=== PATIENT | male | born 1950 | race Caucasian/White ===

== ENCOUNTER 2020-01-02 10:32 | Inpatient (IN) | payer OTHER, MEDICARE, SELFPAY ==
[2020-01-02] VITALS (16 sets, daily range): BP systolic 73–164; BP diastolic 42–98; PULSE 74–127; RESP 18–36; TEMP 36.5–36.9; O2SAT 87–99; BMI 25.8
--- NOTE | 2020-01-02 10:36 | XR_ITS ---
WS: [id number] PORTABLE CHEST HISTORY: dyspnea COMPARISON: 09/04/2008 Moderate elevation RIGHT hemidiaphragm. Atelectasis at the lung bases. Cardiac size: Mildly enlarged cardiac silhouette. Mediastinum/Aorta: Normal mediastinum. No osseous abnormality seen. XR/XR chest 1V portable [id number] IMPRESSION: 1. Moderate elevation of the RIGHT hemidiaphragm is new since 2007. May be rel ated to atelectasis. Please note a CT of the abdomen will be performed today an d this area will be further evaluated. 2. Bibasilar atelectasis.
--- NOTE | 2020-01-02 10:36 | CT_ITS ---
WS: [id number] CT ABDOMEN AND PELVIS NONCONTRAST HISTORY: Severe abdominal pain with distention. TECHNIQUE: Imaging performed through the abdomen and pelvis. Coronal and sagittal reformats are submi tted. All CT scans at use at least one of these dose optimization techniques: automated exposure control; mA and/or kV adjustment per patient size (includes targeted exams where d ose is matched to clinical indication); or iterative reconstruction. DLP: 851.72 mGy.cm COMPARISON: 09/07/2008 Lower thorax: Minimal atelectasis at the RIGHT lung base. Heart size is slightly enlarged. No signifi cant hiatal hernia. Liver: Liver is mildly enlarged with hepatic steatosis. No bile duct dilatation. Gallbladder: Unremarkable. Pancreas: Normal. Spleen: Normal. Adrenal glands: Normal. Right kidney: Normal size with no stones, masses or atrophy. Left kidney: Normal size with no stones, mass or atrophy. Mild atherosclerosis of aorta but no aneurysm. No aortic rupture. No ascites or adenopathy. There is mild misting within the mesentery which is probably related to yudi ma. GI tract: Moderate dilatation of small bowel loops. Fluid-filled small bowel loops with mucosal edema and wall thickening. In the distal small bowel there is a focal perforation. Extraluminal air still contained within the RIGHT lower quadrant. Perforation is in the distal jejunum but just proximal to the terminal ileum. The terminal ileum is also abnormal. There is a tiny amount of air adjacent to th e terminal ileum. Stricture is not excluded at the terminal ileum site. Abdominal wall: Umbilical hernia contains fat. There is a small amount of fluid along the umbilical h ernia tract. Pelvis: Nondistended urinary bladder. No free fluid or adenopathy. Osseous structures: Unremarkable. Notified Cornelius Gramajo DO at 01/02/2020 11:[address]/CT abdomen pelvis wo con [id number] IMPRESSION: 1. High-grade small bowel obstruction with a focal perforation in the distal j ejunum. Perforation is just proximal to the terminal ileum. Small amount of ext raluminal free air at the perforation site. Changes throughout the small bowel suggesting ischemia or high-grade infection. 2. Mild hepatomegaly and hepatic steatosis. 3. Partially calcified aorta.
--- NOTE | 2020-01-02 10:49 | W.ED.ABDPA2 ---
HPI - Abdominal Pain General: Chief Complaint: Abdominal Pain Stated Complaint: ABD PAIN Time Seen by Provider: 01/02/20 10:35 History of Present Illness: Associated Symptoms: Reports change in bowel habits, constipation, nausea and vomiting Review of Systems General: Reports: 10 or more systems reviewed and unremarkable except in HPI and below GI: Reports: abdominal pain, nausea, vomiting, constipation and change in bowel habits PFSH ED PFSH: Medical History Crohn's disease Drug-induced peripheral neuropathy Esophageal stricture GERD (gastroesophageal reflux disease) HTN (hypertension), benign Hyperlipidemia Surgical History History of esophageal dilatation Status post colonoscopy Social History Smoking and tobacco status: never smoked Physical Exam Const: COMMON NORMALS: no apparent distress, average body habitus, oriented x3, no limitations, healthy appearing, alert and well nourished HENMT: COMMON NORMALS: normocephalic, head/scalp atraumatic, hearing grossly normal bilaterally, external ears normal, EAC's normal, TM's normal bilaterally, external nose normal, nasal mucous membranes and turbinates normal, moist oral mucous membranes, oropharynx normal, dentition normal and gingiva normal HEAD & SCALP: normocephalic and atraumatic NOSE: external nose normal and nasal mucous membranes and turbinates normal EXTERNAL EAR: Yes external ears normal EXTERNAL AUDITORY CANAL: EAC's normal TYMPANIC MEMBRANE: TM's normal bilaterally Eye: COMMON NORMALS: PERRL, EOMs intact bilaterally, conjunctivae normal, no scleral icterus, no papilledema, normal visual modi by confrontation and fundi normal bilaterally CONJUNCTIVA: Yes conjunctivae normal PUPIL: Yes PERRL DIRECT OPHTHALMOSCOPY: Yes no papilledema and Yes fundi normal bilaterally Neck/C-Spine: COMMON NORMALS: full ROM, no lymphadenopathy, supple, no meningeal signs, no JVD, thyroid normal and no carotid bruits THYROID: thyroid normal Chest: COMMONS NORMALS: inspection of chest normal and palpation of chest normal Resp: COMMON NORMALS: normal respiratory effort, no retractions, no use of accessory muscles, clear to auscultation bilaterally and percussion normal AUSCULTATION: clear to auscultation bilaterally PERCUSSION: percussion normal Cardio: COMMON NORMALS: no JVD, regular rate, regular rhythm, S1 normal heart sound, S2 normal heart sound, no gallops, no clicks, no murmurs, no rub and peripheral pulses 2+ throughout RATE: regular rate RHYTHM: regular rhythm HEART SOUNDS: S1 normal and S2 normal PERIPHERAL PULSES: pulses 2+ throughout GI: INSPECTION: Yes abdominal distension and No fluid wave present AUSCULTATION: Yes hypoactive bowel sounds and Yes absent bowel sounds PALPATION: Yes firm PERCUSSION: no fluid wave : COMMON NORMALS: Yes no CVA tenderness BLADDER/KIDNEY EXAM: Yes no CVA tenderness Back/Pelvis: COMMON NORMALS: no CVA tenderness, thoracic and lumbar spine normal to inspection, no thoracic nor lumbar tenderness, thoraco-lumbar ROM normal and straight leg raise negative bilaterally Extremity: COMMON NORMALS: normal to inspection, full ROM, normal capillary refill, no joint enlargement, no clubbing, cyanosis or edema, no calf tenderness and no pedal edema Neuro: COMMON NORMALS: oriented x3 SENSORIUM/ORIENTATION: Yes alert MENINGEAL SIGNS: Yes no meningeal signs Skin: COMMON NORMALS: no rashes or lesions noted, no wounds, skin turgor normal, no jaundice, no petechiae and no mottling GENERAL SKIN EXAM: no rashes or lesions noted and turgor normal Procedures Intubation Mg Given: 20 Mg Given: 200 Course Vital Signs: Vital signs: Vital Signs Temperature 98.3 F 01/02/20 13:51 Pulse Rate 74 01/02/20 13:51 Respiratory Rate 20 H 01/02/20 13:51 Blood Pressure 77/42 01/02/20 13:51 Pulse Oximetry 95 01/02/20 13:51 MDM - Abdominal Pain Lab Data: Labs: Lab Results 01/02/20 01/02/20 01/02/20 Range/Units 10:20 10:20 10:40 WBC 15.5 H (4.0-10.0) 10^3/ uL RBC 5.37 H (4.1-5.3) 10^6/u L Hgb 16.2 (11.7-16.6) g/dL Hct 47.8 (42.0-52.0) % MCV 89.0 (80-94) fL MCH 30.2 (28.0-34.0) pg MCHC 33.9 (30.0-36.0) g/dL RDW 13.4 (12.1-15.1) % Plt Count 225 (130-400) 10^3/c mm MPV 9.9 (7.4-10.4) fL Neut % (Auto) 93.3 % Lymph % (Auto) 3.8 % [place] % (Auto) 1.9 % Eos % (Auto) 0.0 % Baso % (Auto) 0.2 % Neut # (Auto) 14.4 H (1.8-7.7) 10^3/u L Lymph # (Auto) 0.6 L (0.8-4.8) 10^3/u L [place] # (Auto) 0.3 (0.2-0.9) 10^3/u L Eos # (Auto) 0.0 (0.0-0.8) 10^3/u L Baso # (Auto) 0.0 (0.0-0.1) 10^3/u L Nucleated RBC % (a uto) 0 % Nucleated RBCs # 0.0 /100WBC Sodium 136 (136-145) mmol/L Potassium 3.1 L (3.5-5.1) mmol/L Chloride 96 L (98-107) mmol/L Carbon Dioxide 23 (22-29) mmol/L Anion Gap 20.1 H (5-19) BUN 29 H (8-23) mg/dL Creatinine 2.7 H (0.7-1.2) mg/dL GFR Calculation 23.7 L (90-130) mL/min Glucose 94 (65-115) mg/dL Calculated Osmolal ity 279 L (285-295) mOsm/k g Lactate 3.8 H (0.5-2.2) mmol/L Calcium 9.1 (8.5-10.5) mg/dL Total Bilirubin 2.5 H (0.15-1.2) mg/dL AST 50 H (0-40) U/L ALT 43 H (0-41) U/L Alkaline Phosphata se 92 (40-130) IU/L Creatine Kinase 119 (39-308) U/L Total Protein 6.5 L (6.6-8.7) g/dL Albumin 3.5 (3.5-5.2) g/dL Globulin 3.0 (1.3-4.6) g/dL Lipase 12 L (13-60) U/L Discharge Plan Discharge Patient Disposition: Admitted As Inpatient Clinical Impression: Perforation of small intestine Condition: Fair Referrals: Beth Calvo MD [Family Provider] - Felecia Cardoso DO [Primary Care Provider] - Coding Level of Care 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
[2020-01-02 10:55] LABS: Basophils % 0.2 %; Hematocrit 47.8 % (42.0-52.0); Hemoglobin 16.2 g/dL (11.7-16.6); Lymphocytes # 0.6 10^3/uL (0.8-4.8); Lymphocytes % 3.8 %; Mean Corpuscular HGB Conc 33.9 g/dL (30.0-36.0); Mean Corpuscular Hemoglobin 30.2 pg (28.0-34.0); Mean Platelet Volume 9.9 fL (7.4-10.4); Monocytes # 0.3 10^3/uL (0.2-0.9); Monocytes % 1.9 %; Neutrophils # 14.4 10^3/uL (1.8-7.7); Neutrophils % 93.3 %; Nucleated Red Blood Cells % 0 %; Platelet Count 225 10^3/cmm (130-400); Red Blood Count 5.37 10^6/uL (4.1-5.3); Red Cell Distribution Width 13.4 % (12.1-15.1); White Blood Count 15.5 10^3/uL (4.0-10.0)
[2020-01-02] MEDS: sodium chloride 0.9% 1,000 ML 999 ML IV ×2 (10:55→13:19)
[2020-01-02 11:05] LABS: Alanine Aminotransferase 43 U/L (0-41); Albumin Level 3.5 g/dL (3.5-5.2); Alkaline Phosphatase 92 IU/L (40-130); Anion Gap 20.1 (5-19); Aspartate Amino Transferase 50 U/L (0-40); Blood Urea Nitrogen 29 mg/dL (8-23); Calcium 9.1 mg/dL (8.5-10.5); Carbon Dioxide 23 mmol/L (22-29); Chloride 96 mmol/L (98-107); Creatine Phosphokinase 119 U/L (39-308); Glomerular Filtration Rate 23.7 mL/min (90-130); Glucose 94 mg/dL (65-115); Lipase 12 U/L (13-60); Osmolality Calculated 279 mOsm/kg (285-295); Potassium 3.1 mmol/L (3.5-5.1); Sodium 136 mmol/L (136-145); Total Bilirubin 2.5 mg/dL (0.15-1.2); Total Protein 6.5 g/dL (6.6-8.7)
--- NOTE | 2020-01-02 11:05 | PC.NURSE ---
Update provided to pt's Corinne in the waiting room. I will call her with updates.
[2020-01-02 11:12] LABS: Lactate (Lactic Acid level) 3.8 mmol/L (0.5-2.2)
--- NOTE | 2020-01-02 11:26 | PC.NURSE ---
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
[2020-01-02 11:31] LABS: Slide Review Slide Review Perform
--- NOTE | 2020-01-02 11:33 | PC.NURSE ---
Pt returned from CT.
--- NOTE | 2020-01-02 12:46 | ANES.PREANE2 ---
Pre-Anesthetic Assessment Pre-Anesthetic Assessment: Height/Weight: Height 1.78 m Weight 81.647 kg Temp Pulse Resp BP Pulse Ox 97.8 F 88 18 82/55 95 01/02/20 10:33 01/02/20 12:30 01/02/20 12:30 01/02/20 12:30 01/02/20 12:30 Last intake: Intake Last Liquid Date 01/02/20 Last Liquid Time 07:00 Last Solid Date 01/01/20 Last Solid Time 06:00 Social: Social History: No alcohol and No tobacco Exam: Pre-Anes Outpt Exam: alert, oriented x 3, clear to auscultation bilaterally and regular rate & rhythm Airway: Submandibular: WNL Cervical ROM: Other (limited) MP: 3 Dentition: False (U/L) and Other History/ROS: No significant history except as noted Pulmonary: Pulmonary: None reported CV/HEM: CV/HEM: HTN : Comments: elevated CK Hepatic: Hepatic: None reported GI: GI: GERD (controlled) Metabolic: Metabolic: Hyperlipidemia Musc/skel: Musc/skel: None reported Neuropsych: Neuropsych: None reported Anesthetic Plan: ASA status: 3E Anesthesia: Anesthesia Evaluation and General Risk of > 500 ml blood loss (7ml/kg in children): No PFSH Anesthesia PFSH: Social History Smoking and tobacco status: never smoked Data Anesthesia CBC & Chem 7: 01/02/20 10:20 01/02/20 10:20 Other Labs: Laboratory Results - last 48 hr 01/02/20 01/02/20 01/02/20 10:20 10:20 10:40 WBC 15.5 H RBC 5.37 H Hgb 16.2 Hct 47.8 MCV 89.0 MCH 30.2 MCHC 33.9 RDW 13.4 Plt Count 225 MPV 9.9 Neut % (Auto) 93.3 Lymph % (Auto) 3.8 [place] % (Auto) 1.9 Eos % (Auto) 0.0 Baso % (Auto) 0.2 Neut # (Auto) 14.4 H Lymph # (Auto) 0.6 L [place] # (Auto) 0.3 Eos # (Auto) 0.0 Baso # (Auto) 0.0 Nucleated RBC % (auto) 0 Nucleated RBCs # 0.0 Sodium 136 Potassium 3.1 L Chloride 96 L Carbon Dioxide 23 Anion Gap 20.1 H BUN 29 H Creatinine 2.7 H GFR Calculation 23.7 L Glucose 94 Calculated Osmolality 279 L Lactate 3.8 H Calcium 9.1 Total Bilirubin 2.5 H AST 50 H ALT 43 H Alkaline Phosphatase 92 Creatine Kinase 119 Total Protein 6.5 L Albumin 3.5 Globulin 3.0 Lipase 12 L Micro: Microbiology 01/02/20 10:45 Blood Culture - Preliminary Blood SPECIMEN COLLECTED 01/02/20 10:40 Blood Culture - Preliminary Blood SPECIMEN COLLECTED Cardiac Studies: No Data to Display
[2020-01-02] MEDS: piperacillin-tazobactam 4.5 GM in sodium chloride 0.9% (plus) 50 ML IV (12:49)
--- NOTE | 2020-01-02 13:33 | P.HP_ITS ---
Providers/Chief Complaint Primary Care Provider: Felecia Cardoso DO Chief Complaint: PERFORATED BOWELL History of Present Illness Enoch Collier is a 69 year old male who developed abdominal pain about 2 days ago while working. Initially he thought that it was secondary to trauma but over the next 48 hours his abdominal pain progressively worsened. Patient said having nausea and vomiting yesterday. He denies any fevers but had some chills. He states that he had a bowel movement yesterday but none since then. He usually has daily bowel movements which are loose. He has been on Humira for 8 years now for his Crohn's disease and previously was on Remicade. No previous abdominal surgeries. Review of Systems General: Reports: 10 or more systems reviewed and unremarkable except in HPI and below Medications/Allergies Home Medications Medication Instructions Recorded Confirmed Last Taken Type adalimumab 40 mg SUBCUT Q14D 01/02/20 01/02/20 12/26/19 History cholestyramine-aspartame 4 g PO BID 01/02/20 01/02/20 01/01/20 History [Cholestyramine Light] clonidine HCl 0.1 mg PO TID PRN 01/02/20 01/02/20 01/01/20 History cyanocobalamin (vitamin B-12) 500 mcg PO DAILY 01/02/20 01/02/20 01/01/20 History cyclobenzaprine 10 mg PO TID PRN 01/02/20 01/02/20 01/01/20 History lisinopril 20 mg PO BID 01/02/20 01/02/20 01/01/20 History naproxen 500 mg PO BID 01/02/20 01/02/20 01/01/20 History omeprazole 20 mg PO DAILY 01/02/20 01/02/20 01/01/20 History Allergies Allergy/AdvReac Type Severity Reaction Status Date / Time azathioprine Allergy Unknown Unknown Verified 01/02/20 12:06 cefprozil Allergy Unknown Unknown Verified 01/02/20 12:06 infliximab [From Remicade] Allergy Unknown Verified 01/02/20 11:18 iron Allergy Unknown Verified 01/02/20 11:18 oxycodone Allergy ALGY-Hives Verified 01/02/20 11:18 PFSH Acute PFSH: Medical History Crohn's disease Drug-induced peripheral neuropathy Esophageal stricture GERD (gastroesophageal reflux disease) HTN (hypertension), benign Hyperlipidemia Surgical History History of esophageal dilatation Status post colonoscopy Social History Smoking and tobacco status: never smoked Vitals/I&O/Wt Last Vital Signs Temp 97.8 F 01/02/20 10:33 Pulse 88 01/02/20 12:30 Resp 18 01/02/20 12:30 BP 82/55 01/02/20 12:30 Pulse Ox 95 01/02/20 12:30 Weight last 48 hrs Weight 180 lb Physical Exam Narrative: EXAM NARRATIVE: HEENT: Normocephalic Eye: Sclera /conjunctiva normal Respiratory and chest: Bilateral clear breath sounds on auscultation Cardiovascular: Normal S1 and S2 heart sounds Abdomen: Soft to palpation, tender, distended Neurological: Oriented to place person and time Skin: Intact, no lesions appreciated on gross exam Data : 01/02/20 10:20 01/02/20 10:20 Micro: Microbiology 01/02/20 10:45 Blood Culture - Preliminary Blood SPECIMEN COLLECTED 01/02/20 10:40 Blood Culture - Preliminary Blood SPECIMEN COLLECTED A&P Assessment and plan (1) Perforation of small intestine: 69-year-old gentleman who presents with 48-hour history of abdominal pain nausea and vomiting currently on Humira for Crohn's disease with small bowel perforation noted on CT scan. His white count is up to 15, his creatinine is usually less than 1 but is up to 2.7 today. He has elevated bilirubin on initial presentation his systolic blood pressure was in the 70s and after 2 L of fluids, it is in the higher 90s. Patient is in septic shock secondary to perforated bowel. Discussed the findings with the patient and we will proceed with emergent laparoscopic possible open bowel resection with possible open ostomy. He will be admitted to the ICU after surgery. Procedure, risks, benefits and alternatives have been discussed with the patient who wishes to proceed with surgery. 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
--- NOTE | 2020-01-02 17:27 | PM.OP ---
Operative Report Date of procedure: January 02, 2020 Pre-op Diagnosis: Severe Crohn's disease with perforation, small bowel obstruction Post-op Diagnosis: 15 inches of inflamed ileum and jejunum with purulent fluid noted in the peritoneal cavity, no fecal contamination. Multiple strictures noted in the jejunum with no signs of obstruction at the level of the strictures. Procedure Done: Diagnostic laparoscopy Exploratory laparotomy, small bowel resection with end ileostomy Pathology: jejunum and ileum Surgeon: Eren Valverde Anesthesia: General Estimated blood loss (mL): 50 IV fluids (mL): 2,500 Urine output (mL): 50 Condition: stable Disposition: ICU Brief History: There is a 69-year-old gentleman who is on Humira for his Crohn's disease for the last 8 years and has been doing well. He presented to the ER with generalized abdominal pain, peritonitis and hypotension with systolic in the 70s. CT scan of the abdomen and pelvis revealed perforation of the jejunum. Patient was therefore emergently taken to the operating room for surgery after resuscitation for septic shock. Procedure: The patient was taken to the operating room and intubated under general anesthesia after IV antibiotic had been administered. A Bowles catheter and NG tube was placed and the abdomen was prepped and draped in a sterile manner. Using 15 blade a midline infraumbilical incision was made and using open Whittaker technique the peritoneal cavity was entered, 10 mm port was placed and 15 mm of pneumoperitoneum was created. A 10 mm 30 degree scope was introduced and 2 separate 5 mm ports were placed in the left lower quadrant and suprapubic area under direct visualization. There are multiple proximally dilated small bowel loops noted as well as purulent fluid noted in the right lower quadrant and right paracolic gutter. The ileum appeared to be severely inflamed with classic creeping fat noted. Visualization was difficult and therefore the ports were removed and the midline laparotomy incision was made to enter the peritoneal cavity. The small bowel loops were exteriorized and the small bowel contents was decompressed proximally into the NG tube. The transition point between the normal bowel and the acutely inflamed jejunum was identified and opening made in the mesentery and 55 mm blue load NOEMI stapler was fired to divide the ileum. The mesentery of the ileum which is thickened was divided using LigaSure. A circular skin incision was made in the right lower quadrant over the rectus muscle, subcutis tissue was divided using electrocautery and a cruciate incision was made in the anterior rectus sheath, the rectus muscles were bluntly and a 2 fingerbreadth opening was made in the posterior rectus sheath and the stapled jejunum was exteriorized. The peritoneal cavity was irrigated with 3 L of warm saline and fascia in the midline was closed using #1 looped PDS. The skin at the midline incision and the port sites were closed with morris. The staple line was divided after interrupted 3-0 Vicryl sutures were placed to approximate the anterior rectus sheath to the serosa of the ileum. The mucosa was approximated to the skin edges after everting. Stoma appliance was placed. The patient was extubated and transferred out with NG tube and Bowles catheter in place.
--- NOTE | 2020-01-02 18:33 | PM.CONSULT ---
Providers/Reason For Consult Consulting Physican/Specialty*: Dr. Valverde, surgery Reason for Consult*: Acute kidney injury and medical management Attending Physician: Eren Valverde MD Primary Care Provider: Felecia Cardoso DO History of Present Illness History of Present Illness Enoch Collier is a 69 year old male presented to ER with abdominal pain, nausea/vomiting and chills for couple days and noted to have high-grade small bowel obstruction with evidence of perforation on CT scan. He has underlying Crohn's disease and was taken to the OR and had partial small bowel resection and ostomy placement. In ER he was very hypotensive and septic. He was started on Zosyn and received large amount of fluids. He had evidence of acute kidney injury and had small amount of concentrated urine in the Bowles bag with blood pressure 100s/70s during my evaluation in ICU. He is still under effect of anesthesia and history was somewhat limited. He denied previous history of heart disease, diabetes or stroke. 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 He is immunosuppressed with Humira for the last 8 years. He denies any previous surgeries except to the best I could understand is rectal fissure repair in his young years. He is seeing GI specialist in [facility] and Dr. Cardoso is his primary care physician. He does not appear to be in pain Review of Systems Const: Reports: chills; Denies: fever Eyes: Denies: change in vision ENMT: Denies: throat pain or change in hearing Card: Denies: chest pain, edema or lightheadedness Resp: Denies: shortness of breath or productive cough GI: Reports: abdominal pain, nausea, vomiting and difficulty swallowing (Reports that every 6 months or so he needs to have esophageal stretching); Denies: diarrhea, constipation, blood in stool or black tarry stool Musc: Denies: joint pain or joint swelling Skin/Breast: Denies: rash or redness Neuro: Denies: headache or weakness in extremities Psych: Denies: depression Endo: Denies: excessive sweating Malik/Lymph: Denies: easy bleeding or tender lymph nodes All/Imm: Denies: throat swelling Meds/Allergies Home Medications and Allergies Home Medications Medication Instructions Recorded Confirmed Type adalimumab 40 mg SUBCUT Q14D 01/02/20 01/02/20 History cholestyramine-aspartame 4 g PO BID 01/02/20 01/02/20 History [Cholestyramine Light] clonidine HCl 0.1 mg PO TID PRN 01/02/20 01/02/20 History cyanocobalamin (vitamin B-12) 500 mcg PO DAILY 01/02/20 01/02/20 History cyclobenzaprine 10 mg PO TID PRN 01/02/20 01/02/20 History lisinopril 20 mg PO BID 01/02/20 01/02/20 History naproxen 500 mg PO BID 01/02/20 01/02/20 History omeprazole 20 mg PO DAILY 01/02/20 01/02/20 History Allergies Allergy/AdvReac Type Severity Reaction Status Date / Time azathioprine Allergy Unknown Unknown Verified 01/02/20 12:06 cefprozil Allergy Unknown Unknown Verified 01/02/20 12:06 infliximab [From Remicade] Allergy Unknown Verified 01/02/20 11:18 iron Allergy Unknown Verified 01/02/20 11:18 oxycodone Allergy ALGY-Hives Verified 01/02/20 11:18 PFSH Acute PFSH: Medical History Crohn's disease Drug-induced peripheral neuropathy Esophageal stricture GERD (gastroesophageal reflux disease) HTN (hypertension), benign Hyperlipidemia Surgical History History of esophageal dilatation Status post colonoscopy Family History (Updated 01/02/20 @ 18:51 by Alejandro Blair MD) Mother SLE (systemic lupus erythematosus) Father CAD (coronary artery disease) Social History (Updated 01/02/20 @ 18:52 by Alejandro Blair MD) Quit status (tobacco): has quit using tobacco Year quit tobacco: 1979 Alcohol intake: never Substance/Drug Use: never Lives independently: Yes Household members: spouse Vitals/I&O/Wt Last Vital Signs Temp 97.7 F 01/02/20 17:31 Pulse 85 01/02/20 18:24 Resp 36 H 01/02/20 17:31 BP 164/98 01/02/20 17:31 Pulse Ox 97 01/02/20 18:24 01/02/20 01/02/20 01/02/20 06:59 14:59 22:59 Intake Total 1050 / 1050 Output Total 50 / 50 Balance 1050 / 1050 -50 / 1000 Weight last 48 hrs Weight 81.647 kg Physical Exam Const: COMMON NORMALS: no apparent distress GENERAL APPEARANCE: lethargic ORIENTATION/CONSCIOUSNESS: Yes lethargic HENMT: COMMON NORMALS: normocephalic and head/scalp atraumatic HEAD & SCALP: normocephalic and atraumatic Eye: COMMON NORMALS: EOMs intact bilaterally, conjunctivae normal and no scleral icterus CONJUNCTIVA: Yes conjunctivae normal Neck/C-Spine: COMMON NORMALS: no lymphadenopathy and no meningeal signs Lymph: LYMPHATIC: no lymphadenopathy noted Chest: COMMONS NORMALS: palpation of chest normal Resp: COMMON NORMALS: no use of accessory muscles and clear to auscultation bilaterally AUSCULTATION: clear to auscultation bilaterally Cardio: COMMON NORMALS: regular rate, regular rhythm and no murmurs RATE: regular rate RHYTHM: regular rhythm OTHER: No lower extremity edema GI: COMMON NORMALS: soft to palpation AUSCULTATION: Yes hypoactive bowel sounds PALPATION: Yes soft, No firm, Yes tender, No guarding and No rigid RECTAL EXAM: Yes deferred OTHER: Ostomy noted with minimal bowel protrusion : COMMON NORMALS: Yes no CVA tenderness BLADDER/KIDNEY EXAM: Yes no CVA tenderness Back/Pelvis: COMMON NORMALS: no CVA tenderness and thoracic and lumbar spine normal to inspection Extremity: COMMON NORMALS: normal to inspection and normal capillary refill Neuro: COMMON NORMALS: no focal motor deficits SENSORIUM/ORIENTATION: Yes lethargic MENINGEAL SIGNS: Yes no meningeal signs Psych: COMMON NORMALS: mental status grossly normal, thought process normal and cooperative THOUGHT PROCESS: normal thought process Skin: COMMON NORMALS: no rashes or lesions noted GENERAL SKIN EXAM: no rashes or lesions noted Urinary Catheter Management^: Bowles: Cath Placed During This Visit: yes Urinary Catheter Date of Insertion: 01/02/20 Urinary Catheter Time of Insertion: 14:30 Data Micro: Micro: Microbiology 01/02/20 10:45 Blood Culture - Pr eliminary Blood SPECIMEN [facility] KATIA 01/02/20 10:40 Blood Culture - Pr eliminary Blood SPECIMEN [facility] A&P Assessment and plan (1) HTN (hypertension), benign: Status: Acute (2) Crohn's disease: Immunosuppressed with Humira. Status: Acute (3) Perforation of small intestine: Patient had evidence of distal ileum and jejunum inflammation with purulent material in peritoneal cavity. Status: Acute (4) Acute kidney injury: Prerenal secondary to dehydration and hypotension. ATN felt unlikely. Status: Acute (5) Severe sepsis with acute organ dysfunction due to Gram negative bacteria: As exhibited by leukocytosis, tachypnea and elevated lactic acid as well as hypotension Status: Acute (6) Acute hypotension: Secondary to dehydration and infection/inflammation Status: Acute (7) Dehydration, moderate: Status: Acute (8) Hypokalemia: Status: Acute (9) Transaminitis: This is likely secondary to gram-negative sepsis Status: Acute Additional A&P Information PLAN: Continue Zosyn. Replete potassium and change IV fluids to LR with monitoring of I's and O's Awaiting pathology report and peritoneal culture Blood cultures were obtained. Obtain urine to rule out UTI. Consult Attestations Medical Necessity Statement: Patient with perforated bowel requires close ICU monitoring and treatment. I expect patient will require more than 2 midnights. 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
[2020-01-02] MEDS: ondansetron 2 mg/ML SDV 2 mL 4 MG IVP (18:35)
[2020-01-02] MEDS: famotidine 20 mg/2 mL INJ IVP (18:35)
[2020-01-02] MEDS: morphine 4 mg/mL SDV 1 mL 3 MG IVP ×2 (18:43→20:44)
[2020-01-02] MEDS: potassium chloride premix 40 MEQ/100 ML PREMIX 25 MEQ IV (18:53)
[2020-01-02] MEDS: metroNIDAZOLE IV 500 MG/100 ML PREMIX 100 MG IV (18:54)
[2020-01-02] MEDS: piperacillin-tazobactam 3.375 GM in sodium chloride 0.9% (plus) 50 ML IV (21:27)
[2020-01-02] MEDS: lactated ringers 1,000 ML 125 ML IV (21:28)
[2020-01-02 21:52] LABS: Bilirubin Urine Neg (NEGATIVE); Blood Urine 3+ (Negative); Glucose Urine UA Norm (Normal); Ketones Urine Negative (Negative); Nitrate Urine Negative (Negative); Protein Urine Trace (Negative); Urine Appearance Hazy (CLEAR); Urine Color Yellow (Yellow); Urobilinogen Urine Norm (Negative); pH Urine 6 (5-7)
[2020-01-02 21:53] LABS: RBC Urine 15-25 /hpf (0-2)
[2020-01-02 21:54] LABS: Add Urine Culture? Yes; Amorphous Sediment Urine 1+; Bacteria Urine 1+; Coarse Granular Casts Urine 0-4 /lpf; Hyaline Casts Urine 0-4; Squamous Epithelial Cell Urine 0-4 (0-5)
[2020-01-02 22:53] LABS: Leukocyte Esterase Urine Negative (Negative)
[2020-01-03] VITALS (15 sets, daily range): BP systolic 114–200; BP diastolic 69–100; PULSE 94–112; RESP 13–34; TEMP 36.6–37.2; O2SAT 93–98
[2020-01-03] MEDS: metroNIDAZOLE IV 500 MG/100 ML PREMIX 100 MG IV (02:15)
[2020-01-03] MEDS: morphine 4 mg/mL SDV 1 mL 3 MG IVP ×2 (02:23→10:34)
[2020-01-03 04:57] LABS: Basophils % 0.5 %; Eosinophils % 0.1 %; Hematocrit 49.2 % (42.0-52.0); Hemoglobin 15.6 g/dL (11.7-16.6); Lymphocytes % 11.8 %; Mean Corpuscular HGB Conc 31.7 g/dL (30.0-36.0); Mean Corpuscular Hemoglobin 30.5 pg (28.0-34.0); Mean Corpuscular Volume 96.3 fL (80-94); Mean Platelet Volume 10.7 fL (7.4-10.4); Monocytes # 0.6 10^3/uL (0.2-0.9); Neutrophils # 6.9 10^3/uL (1.8-7.7); Neutrophils % 79.8 %; Nucleated Red Blood Cells % 0 %; Platelet Count 130 10^3/cmm (130-400); Positive C 1; Positive M 1; Red Blood Count 5.11 10^6/uL (4.1-5.3); Red Cell Distribution Width 14.3 % (12.1-15.1); White Blood Count 8.6 10^3/uL (4.0-10.0)
[2020-01-03 05:13] LABS: Alanine Aminotransferase 50 U/L (0-41); Albumin Level 2.3 g/dL (3.5-5.2); Alkaline Phosphatase 73 IU/L (40-130); Anion Gap 17.2 (5-19); Blood Urea Nitrogen 27 mg/dL (8-23); Calcium 7.9 mg/dL (8.5-10.5); Carbon Dioxide 14 mmol/L (22-29); Chloride 109 mmol/L (98-107); Globulin 3.3 g/dL (1.3-4.6); Glomerular Filtration Rate 46.7 mL/min (90-130); Glucose 76 mg/dL (65-115); Osmolality Calculated 276 mOsm/kg (285-295); Potassium 5.2 mmol/L (3.5-5.1); Sodium 135 mmol/L (136-145); Total Bilirubin 1.7 mg/dL (0.15-1.2); Total Protein 5.6 g/dL (6.6-8.7)
[2020-01-03 05:18] LABS: Aspartate Amino Transferase 60 U/L (0-40)
[2020-01-03] MEDS: piperacillin-tazobactam 3.375 GM in sodium chloride 0.9% (plus) 50 ML IV ×3 (06:10→23:19)
[2020-01-03] MEDS: heparin 5,000 unit/mL INJ 1 mL 5000 UNIT SUBCUT ×3 (06:10→23:20)
[2020-01-03] MEDS: lactated ringers 1,000 ML 125 ML IV (06:11)
--- NOTE | 2020-01-03 07:00 | PC.NURSE ---
SHIFT SUMMARY PT HAS REMAINED ALERT AND ORIENTATED. PT BOWEL SOUNDS REMAIN HYPOACTIVE. PT STOMACH IS TENDER, REMAINS SOFT. PT HAS BEEN HAVING ICE CHIPS INTAKE. PT HAS HAD ADEQUATE URINE OUTPUT. PT IV REMAINS PATENT. PT HAS RECEIVED MORPHINE NEEDED FOR PAIN.
[2020-01-03] MEDS: pantoprazole 40 mg SDV IVP (08:46)
[2020-01-03] MEDS: acetaminophen 325 mg Tablet 650 MG PO ×3 (08:46→23:33)
--- NOTE | 2020-01-03 08:47 | P.PN_ITS ---
Subjective Subjective: Interval history: Patient reports feeling better. He denies shortness of breath or chest pain. He has some abdominal soreness post surgery. His white blood cell count and kidney function improved same as bilirubin. His both blood cultures are growing gram-negative rods with identification and susceptibility pending. Vitals/I&O/Wt Last Vital Signs Temp 98.6 F 01/03/20 02:29 Pulse 105 H 01/03/20 08:13 Resp 13 01/03/20 08:13 BP 123/82 01/03/20 08:13 Pulse Ox 94 01/03/20 08:13 01/02/20 01/03/20 01/03/20 22:59 06:59 14:59 Intake Total 1300.000 / 2350.000 300 / 300 Output Total 950 / 950 1700 / 2650 Balance -950 / 100 -400.000 / -300.000 300 / 300 Weight last 48 hrs Weight 81.647 kg Physical Exam Const: COMMON NORMALS: no apparent distress GENERAL APPEARANCE: lethargic ORIENTATION/CONSCIOUSNESS: Yes lethargic HENMT: COMMON NORMALS: normocephalic and head/scalp atraumatic HEAD & SCALP: normocephalic and atraumatic Eye: COMMON NORMALS: EOMs intact bilaterally, conjunctivae normal and no scleral icterus CONJUNCTIVA: Yes conjunctivae normal Neck/C-Spine: COMMON NORMALS: no lymphadenopathy and no meningeal signs Lymph: LYMPHATIC: no lymphadenopathy noted Chest: COMMONS NORMALS: palpation of chest normal Resp: COMMON NORMALS: no use of accessory muscles and clear to auscultation bilaterally AUSCULTATION: clear to auscultation bilaterally Cardio: COMMON NORMALS: regular rate, regular rhythm and no murmurs RATE: regular rate RHYTHM: regular rhythm OTHER: No lower extremity edema GI: COMMON NORMALS: soft to palpation AUSCULTATION: Yes hypoactive bowel sounds PALPATION: Yes soft, No firm, Yes tender, No guarding and No rigid RECTAL EXAM: Yes deferred OTHER: Ostomy noted with minimal bowel protrusion : COMMON NORMALS: Yes no CVA tenderness BLADDER/KIDNEY EXAM: Yes no CVA tenderness Back/Pelvis: COMMON NORMALS: no CVA tenderness and thoracic and lumbar spine normal to inspection Extremity: COMMON NORMALS: normal to inspection and normal capillary refill Neuro: COMMON NORMALS: no focal motor deficits SENSORIUM/ORIENTATION: Yes lethargic MENINGEAL SIGNS: Yes no meningeal signs Psych: COMMON NORMALS: mental status grossly normal, thought process normal and cooperative THOUGHT PROCESS: normal thought process Skin: COMMON NORMALS: no rashes or lesions noted GENERAL SKIN EXAM: no rashes or lesions noted Urinary Catheter Management^: Bowles: Cath Placed During This Visit: yes Reason for Continuing Indwelling Catheter: Accurate Measurement of Urinary Output in Critically Ill Patients Urinary Catheter Date of Insertion: 01/02/20 Urinary Catheter Time of Insertion: 14:30 Data : 01/03/20 04:35 01/03/20 04:35 Micro: Microbiology 01/02/20 10:45 Blood Culture - Preliminary Blood Gram positive emil Gram Negative Rods 01/02/20 10:40 Blood Culture - Preliminary Blood Gram Negative Rods A&P Assessment and plan (1) HTN (hypertension), benign: Status: Acute (2) Crohn's disease: Immunosuppressed with Humira. Status: Acute (3) Perforation of small intestine: Patient had evidence of distal ileum and jejunum inflammation with purulent material in peritoneal cavity. Status: Acute (4) Acute kidney injury: Prerenal secondary to dehydration and hypotension. ATN felt unlikely. Status: Acute (5) Severe sepsis with acute organ dysfunction due to Gram negative bacteria: As exhibited by leukocytosis, tachypnea and elevated lactic acid as well as hypotension Status: Acute (6) Acute hypotension: Secondary to dehydration and infection/inflammation Status: Acute (7) Dehydration, moderate: Status: Acute (8) Hypokalemia: Status: Acute (9) Transaminitis: This is likely secondary to gram-negative sepsis Status: Acute Additional A&P Information PLAN: Continue Zosyn and change IV fluids to normal saline. Continue monitoring urinary output. Repeat blood cultures now and then tomorrow morning. We will keep Bowles catheter in for now for close I's and O's. If remains hemodynamically stable we can transfer patient to MedSur sheets later today. Monitor cardiorespiratory status. Discussed with Dr. Valverde this morning. We will avoid any immunosuppressive therapy at this point. Attestations Medical Necessity Statement*: Patient with gram-negative sepsis requires close inpatient monitoring and treatment. 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
--- NOTE | 2020-01-03 14:10 | P.PN_ITS ---
Subjective Subjective: Interval history: Patient had a good night overall, pain was controlled. No output from the ostomy Vitals/I&O/Wt Last Vital Signs Temp 97.8 F 01/03/20 10:11 Pulse 107 H 01/03/20 10:11 Resp 22 H 01/03/20 10:34 BP 135/95 01/03/20 10:11 Pulse Ox 94 01/03/20 10:34 01/02/20 01/03/20 01/03/20 22:59 06:59 14:59 Intake Total 1300.000 / 2350.000 450 / 450 Output Total 950 / 2650 1700 / 2650 Balance -950 / -300.000 -400.000 / -300.000 450 / 450 Weight last 48 hrs Weight 180 lb Physical Exam Narrative: EXAM NARRATIVE: Abdomen: Soft, minimally tender, dressings dry and intact, ileostomy is pink but edematous, NG tube and Bowles catheter in place Urinary Catheter Management^: Bowles: Cath Placed During This Visit: yes Reason for Continuing Indwelling Catheter: Accurate Measurement of Urinary Output in Critically Ill Patients Urinary Catheter Date of Insertion: 01/02/20 Urinary Catheter Time of Insertion: 14:30 Data : 01/03/20 04:35 01/03/20 04:35 Micro: Microbiology 01/03/20 10:22 Blood Culture - Preliminary Blood SPECIMEN COLLECTED 01/03/20 10:19 Blood Culture - Preliminary Blood SPECIMEN COLLECTED 01/02/20 10:45 Blood Culture - Preliminary Blood Gram positive emil Gram Negative Rods 01/02/20 10:40 Blood Culture - Preliminary Blood Gram Negative Rods A&P Assessment and plan (1) Perforation of small intestine: 69-year-old gentleman status post small bowel resection with ileostomy for perforation with associated fulminant enteritis and subsequent small bowel obstruction. Acute renal failure: Creatinine improving to 1.5 Leukocytosis: Gram-negative septicemia resolved, continue IV antibiotics DVT prophylaxis: Heparin 5000 3 times daily Clamp NG tube Start clear liquid diet Ambulate with physical therapy Pepcid for GI prophylaxis Incentive spirometry, wean to room air Transfer to the floor Status: Acute Attestations Medical Necessity Statement*: Patient will need greater than 2 nights of inpatient stay to ensure recovery and monitor for postop complications . 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
[2020-01-03] MEDS: cloNIDine 0.1 mg Tablet PO (16:08)
[2020-01-03] MEDS: sodium chloride 0.9% 1,000 ML 150 ML IV ×2 (16:21→23:20)
[2020-01-03] MEDS: hyDRALAzine 20 mg/mL INJ 1 mL 10 MG IVP (18:47)
[2020-01-03] MEDS: cyclobenzaprine 10 mg Tablet PO (20:00)
[2020-01-04] VITALS (15 sets, daily range): BP systolic 145–190; BP diastolic 91–118; PULSE 90–105; RESP 16–18; TEMP 36.4–37.3; O2SAT 92–99
[2020-01-04 02:36] LABS: Basophils % 0.4 %; Eosinophils % 0.2 %; Hematocrit 44.4 % (42.0-52.0); Hemoglobin 14.3 g/dL (11.7-16.6); Lymphocytes # 0.6 10^3/uL (0.8-4.8); Lymphocytes % 11.4 %; Mean Corpuscular HGB Conc 32.2 g/dL (30.0-36.0); Mean Corpuscular Hemoglobin 29.6 pg (28.0-34.0); Mean Corpuscular Volume 91.9 fL (80-94); Mean Platelet Volume 10.9 fL (7.4-10.4); Monocytes # 0.1 10^3/uL (0.2-0.9); Monocytes % 2.7 %; Neutrophils # 4.5 10^3/uL (1.8-7.7); Neutrophils % 84.5 %; Nucleated Red Blood Cells % 0 %; Platelet Count 97 10^3/cmm (130-400); Red Blood Count 4.83 10^6/uL (4.1-5.3); Red Cell Distribution Width 14.1 % (12.1-15.1); White Blood Count 5.3 10^3/uL (4.0-10.0)
[2020-01-04 03:04] LABS: Anion Gap 14.2 (5-19); Aspartate Amino Transferase 41 U/L (0-40); Blood Urea Nitrogen 18 mg/dL (8-23); Calcium 8.5 mg/dL (8.5-10.5); Carbon Dioxide 20 mmol/L (22-29); Chloride 103 mmol/L (98-107); Glomerular Filtration Rate 74.5 mL/min (90-130); Glucose 96 mg/dL (65-115); Osmolality Calculated 272 mOsm/kg (285-295); Potassium 4.2 mmol/L (3.5-5.1); Sodium 133 mmol/L (136-145); Total Bilirubin 1.2 mg/dL (0.15-1.2); Total Protein 5.7 g/dL (6.6-8.7)
[2020-01-04 03:21] LABS: Alanine Aminotransferase 34 U/L (0-41); Albumin Level 2.5 g/dL (3.5-5.2); Alkaline Phosphatase 78 IU/L (40-130); Globulin 3.2 g/dL (1.3-4.6)
[2020-01-04 03:28] LABS: Slide Review Slide Review Perform
[2020-01-04] MEDS: sodium chloride 0.9% 1,000 ML 150 ML IV ×2 (05:30→12:06)
[2020-01-04] MEDS: hyDRALAzine 20 mg/mL INJ 1 mL 10 MG IVP ×2 (05:30→12:04)
[2020-01-04] MEDS: heparin 5,000 unit/mL INJ 1 mL 5000 UNIT SUBCUT (05:31)
[2020-01-04] MEDS: piperacillin-tazobactam 3.375 GM in sodium chloride 0.9% (plus) 50 ML IV ×3 (05:31→21:00)
[2020-01-04 06:20] LABS: Absolute Segmented Neutrophil 4.1 10/cmm (1.6-7.1); Band Neutrophils Absolute 0.7 10^3/cmm (0.0-1.2); Segmented Neutrophils 79 %; Total Cells Counted 100 (0-100)
[2020-01-04 06:21] LABS: Lymphocytes 3 %; Monocytes Absolute 0.3 10^3/cmm (0.1-0.6); Platelet Estimate Decreased (Normal); Toxic Vacuolation 1+
[2020-01-04] MEDS: cloNIDine 0.1 mg Tablet PO ×2 (07:08→14:59)
--- NOTE | 2020-01-04 09:02 | PM.PN ---
Subjective Subjective: Interval history: Patient's ostomy has been functioning, pain is reasonably controlled, no nausea or vomiting after the NG tube was clamped Vitals/I&O/Wt Last Vital Signs Temp 98.8 F 01/04/20 07:43 Pulse 96 01/04/20 07:43 Resp 16 01/04/20 07:43 BP 167/103 01/04/20 07:43 Pulse Ox 92 01/04/20 07:43 01/03/20 01/04/20 01/04/20 22:59 06:59 14:59 Intake Total 170 / 3055 2435 / 3055 240 / 240 Output Total 1250 / 2825 1575 / 2825 1100 / 1100 Balance -1080 / 230 860 / 230 -860 / -860 Weight last 48 hrs Weight 180 lb Physical Exam Narrative: EXAM NARRATIVE: Abdomen: Soft, nondistended, tender, incisions clean dry and intact, ostomy is edematous but functioning Urinary Catheter Management^: Bowles: Cath Placed During This Visit: yes Reason for Continuing Indwelling Catheter: Accurate Measurement of Urinary Output in Critically Ill Patients Urinary Catheter Date of Insertion: 01/02/20 Urinary Catheter Time of Insertion: 14:30 Data : 01/04/20 02:00 01/04/20 02:00 Micro: Microbiology 01/03/20 10:19 Blood Culture - Preliminary Blood Gram Negative Rods 01/02/20 21:10 Urine Culture - Preliminary Urine,Clean Catch 01/04/20 02:05 Blood Culture - Preliminary Blood SPECIMEN COLLECTED 01/04/20 02:00 Blood Culture - Preliminary Blood SPECIMEN COLLECTED 01/03/20 10:22 Blood Culture - Preliminary Blood SPECIMEN COLLECTED 01/02/20 10:45 Blood Culture - Preliminary Blood Gram positive emil Gram Negative Rods 01/02/20 10:40 Blood Culture - Preliminary Blood Gram Negative Rods A&P Assessment and plan (1) S/P ileostomy: Status post small bowel resection and ostomy postop day 2, ostomy is functioning DC NG tube Advance to full liquid diet Ambulate with physical therapy Continue IV antibiotics DC aspirin, start Lovenox since creatinine is improved DC Bowles Status: Acute Attestations Medical Necessity Statement*: Patient will need 1 more night of inpatient stay to ensure resolution of ileus Coding Level of Care Code 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
[2020-01-04] MEDS: enoxaparin 40 mg/0.4 mL Syringe SUBCUT (09:37)
[2020-01-04] MEDS: pantoprazole 40 mg SDV IVP (09:37)
--- NOTE | 2020-01-04 11:12 | PC.CHAP ---
Pastoral Care Encounter/Spiritual Assessment Type of Contact [] Declined aoc plans intelligence officer chief visit [] Patient/Family/Request visit [] Outpatient visit [] Follow-up visit [] Physician referral [] Code/Alert [x] Routine visit [] Staff referral [] Actively dying [] Patient sleeping [] Family support [] [] Out of room [] Palliative care [] [] Receiving care in room [] Pre-surgical visit [] Trauma [] Long length of stay [] ICU visit [] Other: Relational/Emotional Strength [x] Patient feels connected with others/family/visitors/staff [] Distress [] Loneliness/isolation [] Abandonment Spirituality of Patient [x] Person of Clarisa [x] Attends Episcopalian of their Clarisa [x] Believes in Prayer [] Reads Bible or Mu-Ism materials [] There are Spiritual issues to be addressed Wet Milling Wheel Operator Interventions [x] Prayer [x] Active listening [x] Non-anxious presence [x] Spiritual/emotional support [] Crisis/trauma care [x] Spiritual counseling [] Bereavement support [] Provided bereavement packet [] Provided Bible/devotional materials [] Provided toy/stuffed animal, coloring book to patient or family member [] Provided Communion [] Anointing/[place] [] Salvation [] Completed spiritual assessment [] Other: Impact on Illness or Injury [] Angry [] Fearful [] Anxious [] Often cries [] Exhaustion [] Unable to work [] Unable to attend scientology [] Unable to walk/stand [] Unable to read [] Unable to drive [] Unable to eat/drink [] Unable to sleep [] Unable to be with family [] Patient intubated [x] Other: Summary Patient is of Spiritism belief, has been blessed with a large extended family. Time spent with patient 6 minutes
[2020-01-04] MEDS: lisinopril 20 mg Tablet 40 MG PO (14:02)
[2020-01-04] MEDS: amlodipine 5 mg Tablet PO (14:02)
--- NOTE | 2020-01-04 15:41 | PM.PN ---
Subjective Subjective: Interval history: Patient reports further improving. Denies significant abdominal pain. Denies shortness of breath or chest pain. NG tube removed and he denies any nausea. Tolerating clear liquid diet well. Blood is growing gram-negative emil on 01/03/2020. Vitals/I&O/Wt Last Vital Signs Temp 98.4 F 01/04/20 15:36 Pulse 100 01/04/20 15:36 Resp 18 01/04/20 15:36 BP 166/95 01/04/20 15:36 Pulse Ox 96 01/04/20 15:36 01/04/20 01/04/20 01/04/20 06:59 14:59 22:59 Intake Total 2435 / 3055 1520 / 1520 Output Total 1575 / 2825 1750 / 1750 525 / 2275 Balance 860 / 230 -230 / -230 -525 / -755 Physical Exam Const: COMMON NORMALS: no apparent distress and oriented x3 Resp: COMMON NORMALS: normal respiratory effort and clear to auscultation bilaterally AUSCULTATION: clear to auscultation bilaterally Cardio: COMMON NORMALS: regular rate, regular rhythm and S2 normal heart sound RATE: regular rate RHYTHM: regular rhythm HEART SOUNDS: S2 normal OTHER: No lower extremity edema GI: COMMON NORMALS: soft to palpation and non-tender PALPATION: Yes soft OTHER: Ostomy looks good with minimal fluid in it Neuro: COMMON NORMALS: oriented x3 and no focal motor deficits Urinary Catheter Management^: Bowles: Cath Placed During This Visit: yes Reason for Continuing Indwelling Catheter: Accurate Measurement of Urinary Output in Critically Ill Patients Urinary Catheter Date of Insertion: 01/02/20 Urinary Catheter Time of Insertion: 14:30 Data : 01/04/20 02:00 01/04/20 02:00 Micro: Microbiology 01/03/20 10:22 Blood Culture - Preliminary Blood NEGATIVE TO DATE 01/03/20 10:19 Blood Culture - Preliminary Blood Gram Negative Rods 01/02/20 21:10 Urine Culture - Preliminary Urine,Clean Catch 01/04/20 02:05 Blood Culture - Preliminary Blood SPECIMEN COLLECTED 01/04/20 02:00 Blood Culture - Preliminary Blood SPECIMEN COLLECTED A&P Assessment and plan (1) HTN (hypertension), benign: Status: Acute (2) Crohn's disease: Immunosuppressed with Humira. Status: Acute (3) Perforation of small intestine: Patient had evidence of distal ileum and jejunum inflammation with purulent material in peritoneal cavity. Status: Acute (4) Acute kidney injury: Prerenal secondary to dehydration and hypotension. ATN felt unlikely. Status: Acute (5) Severe sepsis with acute organ dysfunction due to Gram negative bacteria: As exhibited by leukocytosis, tachypnea and elevated lactic acid as well as hypotension Status: Acute (6) Acute hypotension: Secondary to dehydration and infection/inflammation Status: Acute (7) Dehydration, moderate: Status: Acute (8) Hypokalemia: Status: Acute (9) Transaminitis: This is likely secondary to gram-negative sepsis Status: Acute Additional A&P Information PLAN: Continue Zosyn Awaiting culture results to adjust antibiotics. Will request repeat blood cultures for tomorrow morning. Continue adjusting blood pressure medications. Amlodipine was added to lisinopril and we will uptitrate as needed. Continue clonidine and hydralazine for as needed use for now. Discussed with patient that he needs to see his GI specialist after discharge earliest possible to discuss switching Humira to something else as he obviously failed this medication. Patient voiced understanding. Attestations Medical Necessity Statement*: Patient with small bowel obstruction/perforation requiring surgery requires close inpatient monitoring and treatment until deemed safe for discharge. 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
[2020-01-05] MEDS: sodium chloride 0.9% 1,000 ML 150 ML IV (00:44)
[2020-01-05 02:25] LABS: Basophils % 0.4 %; Eosinophils % 0.7 %; Hematocrit 37.5 % (42.0-52.0); Hemoglobin 12.8 g/dL (11.7-16.6); Mean Corpuscular HGB Conc 34.1 g/dL (30.0-36.0); Mean Corpuscular Hemoglobin 29.6 pg (28.0-34.0); Mean Corpuscular Volume 86.6 fL (80-94); Mean Platelet Volume 10.5 fL (7.4-10.4); Monocytes # 0.3 10^3/uL (0.2-0.9); Neutrophils # 4.2 10^3/uL (1.8-7.7); Neutrophils % 75.2 %; Nucleated Red Blood Cells % 0 %; Platelet Count 91 10^3/cmm (130-400); Red Blood Count 4.33 10^6/uL (4.1-5.3); Red Cell Distribution Width 13.8 % (12.1-15.1); White Blood Count 5.6 10^3/uL (4.0-10.0)
[2020-01-05 02:43] LABS: Alanine Aminotransferase 26 U/L (0-41); Albumin Level 2.7 g/dL (3.5-5.2); Alkaline Phosphatase 138 IU/L (40-130); Anion Gap 13.7 (5-19); Aspartate Amino Transferase 32 U/L (0-40); Blood Urea Nitrogen 13 mg/dL (8-23); Calcium 8.4 mg/dL (8.5-10.5); Carbon Dioxide 21 mmol/L (22-29); Chloride 105 mmol/L (98-107); Globulin 2.6 g/dL (1.3-4.6); Glomerular Filtration Rate 84.2 mL/min (90-130); Glucose 112 mg/dL (65-115); Osmolality Calculated 279 mOsm/kg (285-295); Potassium 3.7 mmol/L (3.5-5.1); Sodium 136 mmol/L (136-145); Total Bilirubin 0.9 mg/dL (0.15-1.2); Total Protein 5.3 g/dL (6.6-8.7)
[2020-01-05 03:07] LABS: Slide Review Slide Review Perform
[2020-01-05 04:00] VITALS: BP 172/91; PULSE 88; RESP 18; TEMP 36.5; O2SAT 96
[2020-01-05] MEDS: piperacillin-tazobactam 3.375 GM in sodium chloride 0.9% (plus) 50 ML IV ×2 (05:48→14:56)
[2020-01-05] MEDS: enoxaparin 40 mg/0.4 mL Syringe SUBCUT (07:32)
[2020-01-05 08:00] VITALS: BP 138/64; PULSE 82; RESP 18; TEMP 37.1; O2SAT 94
--- NOTE | 2020-01-05 08:26 | P.PN_ITS ---
Subjective Subjective: Interval history: Patient denies any abdominal pain at rest. Does have some discomfort whenever he moves or coughs. Reports having chronic dry cough for many years which is unchanged. Denies any shortness of breath or chest pain. Ostomy has dark-colored output. I have tried calling patient's daughter Deborah ([phone]) per patient's permission and left message on a [employer] machine. Blood cultures on 01/03 so far negative. Identification and susceptibility is not back yet. Patient tolerates liquid diet well and overall nicely recovering. His vitals are stable. White blood cell count is in normal range. Platelets are slightly down and likely related to infection therefore I expected will soon plateau and start recovering. Vitals/I&O/Wt Last Vital Signs Temp 98.7 F 01/05/20 08:00 Pulse 82 01/05/20 08:00 Resp 18 01/05/20 08:00 BP 138/64 01/05/20 08:00 Pulse Ox 94 01/05/20 08:00 01/04/20 01/05/20 01/05/20 22:59 06:59 14:59 Intake Total 1290 / 2810 85 / 2895 Output Total 1400 / 3150 1325 / 4475 350 / 350 Balance -110 / -340 -1240 / -1580 -350 / -350 Physical Exam Const: COMMON NORMALS: no apparent distress and oriented x3 Resp: COMMON NORMALS: normal respiratory effort and clear to auscultation bilaterally AUSCULTATION: clear to auscultation bilaterally Cardio: COMMON NORMALS: regular rate, regular rhythm and S2 normal heart sound RATE: regular rate RHYTHM: regular rhythm HEART SOUNDS: S2 normal OTHER: No lower extremity edema GI: COMMON NORMALS: normal to inspection, nondistended, normoactive bowel sounds, soft to palpation and non-tender PALPATION: Yes soft Neuro: COMMON NORMALS: oriented x3 and no focal motor deficits Urinary Catheter Management^: Bowles: Cath Placed During This Visit: yes Reason for Continuing Indwelling Catheter: Accurate Measurement of Urinary Output in Critically Ill Patients Urinary Catheter Date of Insertion: 01/02/20 Urinary Catheter Time of Insertion: 14:30 Data : 01/05/20 02:05 01/05/20 02:05 Micro: Microbiology 01/02/20 21:10 Urine Culture - Final Urine,Clean Catch 01/04/20 02:05 Blood Culture - Preliminary Blood NEGATIVE TO DATE 01/04/20 02:00 Blood Culture - Preliminary Blood NEGATIVE TO DATE 01/05/20 02:05 Blood Culture - Preliminary Blood SPECIMEN COLLECTED 01/05/20 02:05 Blood Culture - Preliminary Blood SPECIMEN COLLECTED 01/03/20 10:22 Blood Culture - Preliminary Blood NEGATIVE TO DATE 01/03/20 10:19 Blood Culture - Preliminary Blood Gram Negative Rods A&P Assessment and plan (1) HTN (hypertension), benign: Status: Acute (2) Crohn's disease: Immunosuppressed with Humira. Status: Acute (3) Perforation of small intestine: Patient had evidence of distal ileum and jejunum inflammation with purulent material in peritoneal cavity. Status: Acute (4) Acute kidney injury: Prerenal secondary to dehydration and hypotension. ATN felt unlikely. Status: Acute (5) Severe sepsis with acute organ dysfunction due to Gram negative bacteria: As exhibited by leukocytosis, tachypnea and elevated lactic acid as well as hypotension Status: Acute (6) Acute hypotension: Secondary to dehydration and infection/inflammation Status: Acute (7) Dehydration, moderate: Status: Acute (8) Hypokalemia: Status: Acute (9) Transaminitis: This is likely secondary to gram-negative sepsis Status: Acute (10) Thrombocytopenia: Status: Acute Additional A&P Information PLAN: Continue Zosyn Awaiting culture results to adjust antibiotics. We again discussed regarding importance of timely follow-up with GI specialist post discharge to consider new immunosuppressive medication since patient failed Humira. Attestations Medical Necessity Statement*: Patient post bowel perforation and peritonitis requires close inpatient monitoring and treatment until deemed safe for discharge. 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
[2020-01-05] MEDS: amlodipine 5 mg Tablet PO (09:07)
[2020-01-05] MEDS: lisinopril 20 mg Tablet 40 MG PO (09:07)
[2020-01-05] MEDS: pantoprazole 40 mg SDV IVP (09:08)
--- NOTE | 2020-01-05 09:50 | PC.SOCIAL ---
IMM Page 2 of IMM explained to and signed by patient. Initialed, dated, and timed and placed in chart. Copy provided to patient.
[2020-01-05 11:27] VITALS: BP 164/90; PULSE 91; RESP 20; TEMP 37.2; O2SAT 96
--- NOTE | 2020-01-05 13:32 | P.DS_ITS ---
Discharge Providers Date of Admission: 01/02/20 15:45 Date of Discharge: January 05, 2020 Attending Provider at Admission: Eren Valverde MD Attending Provider at Discharge: Eren Valverde MD Primary Care Provider: Felecia Cardoso DO Diagnoses at Discharge Discharge Diagnosis (1) HTN (hypertension), benign: Status: Chronic (2) Crohn's disease: Status: Chronic (3) Perforation of small intestine: Status: Resolved (4) Acute kidney injury: Status: Resolved (5) Severe sepsis with acute organ dysfunction due to Gram negative bacteria: Status: Resolved (6) Acute hypotension: Status: Resolved (7) Dehydration, moderate: Status: Resolved (8) Hypokalemia: Status: Resolved (9) Transaminitis: Status: Resolved (10) Thrombocytopenia: Status: Resolved Reason for Visit Reason for Visit: Reason For Visit: PERFORATED BOWELL Hospital Course Hospital Course: Enoch Collier is a 69 year old male who developed abdominal pain about 2 days ago while working. Initially he thought that it was secondary to trauma but over the next 48 hours his abdominal pain progressively worsened. Patient said having nausea and vomiting yesterday. He denies any fevers but had some chills. He states that he had a bowel movement yesterday but none since then. He usually has daily bowel movements which are loose. He has been on Humira for 8 years now for his Crohn's disease and previously was on Remicade. No previous abdominal surgeries. Patient was noted to be hypotensive with systolic blood pressure in the 70s and was therefore taken to the operating room emergently after resuscitation for exploratory laparotomy and small bowel resection with an ileostomy. By postop day 2 his ostomy was functioning and at time of discharge his vital signs are stable his incision is clean dry and intact. He was tolerating a regular diet. He was restarted on his cholestyramine to decrease ileostomy output Physical Exam Urinary Catheter Management^: Bowles: Cath Placed During This Visit: yes Reason for Continuing Indwelling Catheter: Accurate Measurement of Urinary Output in Critically Ill Patients Urinary Catheter Date of Insertion: 01/02/20 Urinary Catheter Time of Insertion: 14:30 Discharge Data Data Completed and Pending: Completed Studies During Hospitalization Category Date Time Status CT abdomen pelvis wo con 99241 Urge nt Cat Scan 01/02/20 10:36 Completed XR chest 1V jaycee ble [id number] Urgent Exams 01/02/20 10:36 Completed Pathology: Surgic al [PTH] Routine Pth 01/02/20 17:04 Completed Pending at discharge Category Date Time Status Blood Culture AM LABS Lab 01/04/20 02:05 Results Blood Culture AM LABS Lab 01/05/20 02:05 Results Blood Culture Sta t Lab 01/02/20 10:45 Results Blood Culture Sta t Lab 01/03/20 10:22 Results Labs from last 24 hours 01/05/20 01/05/20 02:05 02:05 WBC 5.6 RBC 4.33 Hgb 12.8 Hct 37.5 L MCV 86.6 MCH 29.6 MCHC 34.1 RDW 13.8 Plt Count 91 L MPV 10.5 H Neut % (Auto) 75.2 Lymph % (Auto) 18.0 [place] % (Auto) 5.0 Eos % (Auto) 0.7 Baso % (Auto) 0.4 Neut # (Auto) 4.2 Lymph # (Auto) 1.0 [place] # (Auto) 0.3 Eos # (Auto) 0.0 Baso # (Auto) 0.0 Nucleated RBC % (a uto) 0 Nucleated RBCs # 0.0 Sodium 136 Potassium 3.7 Chloride 105 Carbon Dioxide 21 L Anion Gap 13.7 BUN 13 Creatinine 0.9 GFR Calculation 84.2 L Glucose 112 Calculated Osmolal ity 279 L Calcium 8.4 L Total Bilirubin 0.9 AST 32 ALT 26 Alkaline Phosphata se 138 H Total Protein 5.3 L Albumin 2.7 L Globulin 2.6 Vitals: Last Vital Signs Temp 99.0 F 01/05/20 11:27 Pulse 91 01/05/20 11:27 Resp 20 H 01/05/20 11:27 BP 164/90 01/05/20 11:27 Pulse Ox 96 01/05/20 11:27 Discharge Plan Discharge Patient Disposition: Home, Self-Care Condition: Fair Prescriptions: New Cholestyramine 4 units packet 4 gm PO TID Qty: 90 RF: 2 [place] 5-325 mg tablet 1 tab PO Q6H 7 Days Qty: 20 RF: 0 Flagyl 500 mg tablet 500 mg PO Q8H 7 Days Qty: 21 RF: 0 Levaquin 750 mg tablet 750 mg PO DAILY 5 Days RF: 0 Continued cyclobenzaprine 10 mg Tablet 10 mg PO TID PRN (Reason: Pain) RF: 0 clonidine HCl 0.1 mg Tablet 0.1 mg PO TID PRN (Reason: Blood Pressure) RF: 0 lisinopril 20 mg Tablet 20 mg PO BID RF: 0 cyanocobalamin (vitamin B-12) 500 mcg Tablet 500 mcg PO DAILY RF: 0 omeprazole 20 mg Capsule,Delayed Release(Dr/Ec) 20 mg PO DAILY RF: 0 naproxen 500 mg Tablet 500 mg PO BID RF: 0 Held Cholestyramine Light 4 gram Powder 4 g PO BID RF: 0 Hold Instructions: Resume on 01/05/20. Discontinued adalimumab 40 mg/0.8 mL Pen Injector Kit 40 mg SUBCUT Q14D RF: 0 Discharge Orders: Discharge Order (Routine); Ordered 01/05/20 Ordered By: Eren Valverde Ref[facility]: [facility] [place]) [Outside] Beth Calvo MD [Family Provider] - (Please call Dr. Calvo's office on Wednesday to make a follow up appointmnet to be seen in 1 week.) Eren Valverde MD [Physician] - 7-10 days (Please call Dr. Valverde's office on Wednesday to be seen in clinic on WednesdayJanuary 14.) Felecia Cardoso DO [Primary Care Provider] - Discharge Diet: GI Soft Patient Instructions: Hydrocodone/Acetaminophen (By mouth), Cholestyramine (By mouth), Metronidazole (By mouth), Levofloxacin (By mouth), Colostomy Care (GEN), Perforated Bowel (GEN) Activity Restrictions/Additional Instructions: 1. Up and walking as tolerated. 2. Ok to shower 4. Do not lift more than 10 pounds. 5. Do not operate heavy machinery or drive while using pain medications. 6. Advised to return to ER or contact my office if there are any signs of infection like, increasing pain, fevers, chills, redness or drainage of pus. 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
--- NOTE | 2020-01-05 13:32 | P.PN_ITS ---
Subjective Subjective: Interval history: Patient has been doing well denies any pain nausea vomiting, tolerating regular diet, ostomy is functioning Vitals/I&O/Wt Last Vital Signs Temp 99.0 F 01/05/20 11:27 Pulse 91 01/05/20 11:27 Resp 20 H 01/05/20 11:27 BP 164/90 01/05/20 11:27 Pulse Ox 96 01/05/20 11:27 01/04/20 01/05/20 01/05/20 22:59 06:59 14:59 Intake Total 1290 / 2895 85 / 2895 600 / 600 Output Total 1400 / 4475 1325 / 4475 750 / 750 Balance -110 / -1580 -1240 / -1580 -150 / -150 Physical Exam Narrative: EXAM NARRATIVE: Abdomen: Soft, nondistended, nontender, ostomy pink and functioning Urinary Catheter Management^: Bowles: Cath Placed During This Visit: yes Reason for Continuing Indwelling Catheter: Accurate Measurement of Urinary Output in Critically Ill Patients Urinary Catheter Date of Insertion: 01/02/20 Urinary Catheter Time of Insertion: 14:30 Data : 01/05/20 02:05 01/05/20 02:05 Micro: Microbiology 01/02/20 10:40 Blood Culture - Preliminary Blood Gram Negative Rods 01/02/20 21:10 Urine Culture - Final Urine,Clean Catch 01/04/20 02:05 Blood Culture - Preliminary Blood NEGATIVE TO DATE 01/04/20 02:00 Blood Culture - Preliminary Blood NEGATIVE TO DATE 01/05/20 02:05 Blood Culture - Preliminary Blood SPECIMEN COLLECTED 01/05/20 02:05 Blood Culture - Preliminary Blood SPECIMEN COLLECTED 01/03/20 10:22 Blood Culture - Preliminary Blood NEGATIVE TO DATE A&P Assessment and plan (1) S/P ileostomy: Status post lap small bowel resection with ileostomy doing well DC home today Status: Acute Attestations Medical Necessity Statement*: Small bowel resection going home today Coding Level of Care Code 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
[2020-01-05 15:23] VITALS: BP 128/64; PULSE 64; RESP 20; TEMP 36.8; O2SAT 95
[2020-01-05 17:33] VITALS: BP 128/64; PULSE 64; RESP 20; TEMP 36.8; O2SAT 95
== END 2020-01-05 18:14 | disposition home or self-care (01) | DRG 853 ==
LOC: ER 12:04 → OR 12:11 → ICU 15:46 → MEDSURG 01-03 11:54
PROVIDERS: Internal Medicine; Admitting Provider Surgery; Emergency Provider Family Medicine; Family Provider Family Medicine; PCP Family Medicine; Visit Provider Surgery
PROC: 0WJG4ZZ Inspection of Peritoneal Cavity, Percutaneous Endoscopic Approach (ICD-10-PCS; CPT 44120; principal; 2020-01-02 14:00)
DX: A41.50 Gram-negative sepsis, unspecified (principal); R65.21 Severe sepsis with septic shock; K63.1 Perforation of intestine (nontraumatic); N17.9 Acute kidney failure, unspecified; K50.90 Crohn's disease, unspecified, without complications; K21.9 Gastro-esophageal reflux disease without esophagitis; E86.0 Dehydration; E87.6 Hypokalemia; D69.6 Thrombocytopenia, unspecified; I10 Essential (primary) hypertension; E78.5 Hyperlipidemia, unspecified
CPT/HCPCS: 12345; 36415; 51702; 71045; 74176; 80053; 81001; 82550; 83605; 83690; 85007; 85025; 87040; 87077; 87086; 87186; 87205; 88309; 94664; 96372; 96375; 97116; 97161; 97530; 99283; C9113; C9290; J0330; J0360; J0690; J1644; J1650; J2270; J2370; J2405; J2543; J2704; J2710; J3010; J3480; J3490; J7030; S0030

== ENCOUNTER 2020-01-17 21:33 | Emergency (ER) | payer OTHER, MEDICARE, SELFPAY ==
[2020-01-17 21:37] VITALS: BP 160/125; PULSE 86; RESP 18; TEMP 35.9; O2SAT 99; BMI 23.1
--- NOTE | 2020-01-17 21:43 | ECG_ITS ---
Measurements Intervals [place] Rate: 75 P: 64 DC: 157 QRS: 41 QRSD: 93 T: 71 QT: 356 QTc: 398 SINUS RHYTHM EARLY REPOLARIZATION [ST ELEVATION WITH NORMALLY INFLECTED T WAVE] No previous ECG available for comparison Electronically Signed On 01-18-2020 11:06:35 CDT by Yumiko Walker M.D. [id number]
--- NOTE | 2020-01-17 21:45 | ED_ITS ---
HPI - Recheck/Abnormal Lab/Rx General: Chief Complaint: Recheck/Abnormal Lab/Rx Stated Complaint: abnormal labs Time Seen by Provider: 01/17/20 21:35 Source: patient Mode of arrival: ambulatory Limitations: no limitations History of Present Illness: HPI narrative: 69-year-old male who has a history of a perforated bowel 1 month ago. Patient states he went and saw the urgent ca re today because his blood pressures been slightly low. He states they called him and told him potassium was high and his kidney function was low. They informed him to come to the ER. He states he is felt fine has no complaints at this time. Denies any chest or abdominal pain. His blood pressure is normalized. Review of Systems Const: Denies: fever, chills, body aches or change in appetite Eyes: Denies: blurry vision or eye discomfort ENMT: Denies: throat pain or dental pain Card: Denies: chest pain Resp: Denies: shortness of breath GI: Denies: abdominal pain, nausea, vomiting or diarrhea : Denies: painful urination Musc: Denies: neck pain or back pain Skin/Breast: Denies: rash Neuro: Denies: headache Psych: Denies: depression Malik/Lymph: Denies: easy bruising All/Imm: Denies: hives PFSH ED PFSH: Medical History Crohn's disease Drug-induced peripheral neuropathy Esophageal stricture GERD (gastroesophageal reflux disease) HTN (hypertension), benign Hyperlipidemia Surgical History History of esophageal dilatation S/P ileostomy (~12/2019) S/P small bowel resection (~12/2019) Status post colonoscopy Family History Mother SLE (systemic lupus erythematosus) Father CAD (coronary artery disease) Social History Smoking and tobacco status: never smoked Quit status (tobacco): has quit using tobacco Year quit tobacco: 1979 Alcohol intake: never Lives independently: Yes Household members: spouse Physical Exam Const: COMMON NORMALS: no apparent distress, oriented x3 and healthy appearing HENMT: COMMON NORMALS: normocephalic and head/scalp atraumatic HEAD & SCALP: normocephalic and atraumatic Eye: COMMON NORMALS: PERRL and EOMs intact bilaterally PUPIL: Yes PERRL Neck/C-Spine: COMMON NORMALS: full ROM and supple Chest: COMMONS NORMALS: inspection of chest normal and palpation of chest normal Resp: COMMON NORMALS: normal respiratory effort, no retractions, no use of accessory muscles and clear to auscultation bilaterally AUSCULTATION: clear to auscultation bilaterally Cardio: COMMON NORMALS: regular rate, regular rhythm and no murmurs RATE: regular rate RHYTHM: regular rhythm GI: COMMON NORMALS: normal to inspection, nondistended, normoactive bowel sounds, soft to palpation, non-tender and no masses PALPATION: Yes soft Extremity: COMMON NORMALS: normal to inspection and full ROM Neuro: COMMON NORMALS: oriented x3, moves all extremities and no focal motor deficits Psych: COMMON NORMALS: mental status grossly normal, thought process normal and cooperative THOUGHT PROCESS: normal thought process Skin: COMMON NORMALS: no rashes or lesions noted and no wounds GENERAL SKIN EXAM: no rashes or lesions noted Course Vital Signs: Vital signs: Vital Signs Temperature 96.6 F L 01/17/20 21:37 Pulse Rate 76 01/18/20 00:29 Respiratory Rate 20 H 01/18/20 00:29 Blood Pressure 109/65 01/18/20 00:29 Pulse Oximetry 100 01/18/20 00:29 MDM - Recheck/Abnormal Lab/Rx MDM Narrative: Medical decision making narrative: Patient presents with dehydration causing a very slight acute kidney injury and mild hyperkalemia. Patient has no EKG changes. Patient given IV fluids here and he feels improved and is requesting discharge. I feel he is stable for discharge and has no signs of any serious hyperkalemia. Patient is to follow-up with his primary care doctor in 2 to 3 days to have labs rechecked and he is return to ER if worsening. Patient understands and agrees to plan. Lab Data: Labs: Lab Results 01/17/20 01/17/20 Range/Units 22:11 22:11 WBC 8.5 (4.0-10.0) 10^3/ uL RBC 5.50 H (4.1-5.3) 10^6/u L Hgb 15.9 (11.7-16.6) g/dL Hct 49.3 (42.0-52.0) % MCV 89.6 (80-94) fL MCH 28.9 (28.0-34.0) pg MCHC 32.3 (30.0-36.0) g/dL RDW 13.2 (12.1-15.1) % Plt Count 613 H (130-400) 10^3/c mm MPV 9.1 (7.4-10.4) fL Neut % (Auto) 41.5 % Lymph % (Auto) 46.9 % [place] % (Auto) 8.5 % Eos % (Auto) 1.9 % Baso % (Auto) 0.8 % Neut # (Auto) 3.5 (1.8-7.7) 10^3/u L Lymph # (Auto) 4.0 (0.8-4.8) 10^3/u L [place] # (Auto) 0.7 (0.2-0.9) 10^3/u L Eos # (Auto) 0.2 (0.0-0.8) 10^3/u L Baso # (Auto) 0.1 (0.0-0.1) 10^3/u L Nucleated RBC % (a uto) 0 % Nucleated RBCs # 0.0 /100WBC Sodium 127 L (136-145) mmol/L Potassium 5.4 H (3.5-5.1) mmol/L Chloride 97 L (98-107) mmol/L Carbon Dioxide 18 L (22-29) mmol/L Anion Gap 17.4 (5-19) BUN 55 H (8-23) mg/dL Creatinine 1.9 H (0.7-1.2) mg/dL GFR Calculation 35.5 L (90-130) mL/min Glucose 167 H (65-115) mg/dL Calculated Osmolal ity 266 L (285-295) mOsm/k g Calcium 9.7 (8.5-10.5) mg/dL Total Bilirubin 0.5 (0.15-1.2) mg/dL AST 26 (0-40) U/L ALT 33 (0-41) U/L Alkaline Phosphata se 276 H (40-130) IU/L Total Protein 7.5 (6.6-8.7) g/dL Albumin 4.0 (3.5-5.2) g/dL Globulin 3.5 (1.3-4.6) g/dL EKG Data^: EKG 1: Attestation: I personally reviewed and interpreted this EKG as follows: EKG interpretation date: 01/17/20 EKG interpretation time: 22:02 Interpretation: nsr hr 75 early repol with no stemi qrs 93 qtc 385 Discharge Plan Discharge Patient Disposition: Home, Self-Care Clinical Impression: Acute dehydration, Acute kidney injury Condition: Stable Prescriptions: No Action cyclobenzaprine 10 mg Tablet 10 mg PO TID PRN (Reason: Pain) RF: 0 clonidine HCl 0.1 mg Tablet 0.1 mg PO TID PRN (Reason: Blood Pressure) RF: 0 lisinopril 20 mg Tablet 20 mg PO BID RF: 0 cyanocobalamin (vitamin B-12) 500 mcg Tablet 500 mcg PO DAILY RF: 0 omeprazole 20 mg Capsule,Delayed Release(Dr/Ec) 20 mg PO DAILY RF: 0 naproxen 500 mg Tablet 500 mg PO BID RF: 0 Cholestyramine Light 4 gram Powder 4 g PO BID RF: 0 Hold Instructions: Resume on 01/05/20. 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
[2020-01-17] MEDS: sodium chloride 0.9% 1,000 ML 999 ML IV ×2 (22:18→23:42)
[2020-01-17 22:32] LABS: Basophils # 0.1 10^3/uL (0.0-0.1); Basophils % 0.8 %; Eosinophils # 0.2 10^3/uL (0.0-0.8); Eosinophils % 1.9 %; Hematocrit 49.3 % (42.0-52.0); Hemoglobin 15.9 g/dL (11.7-16.6); Lymphocytes % 46.9 %; Mean Corpuscular HGB Conc 32.3 g/dL (30.0-36.0); Mean Corpuscular Hemoglobin 28.9 pg (28.0-34.0); Mean Corpuscular Volume 89.6 fL (80-94); Mean Platelet Volume 9.1 fL (7.4-10.4); Monocytes # 0.7 10^3/uL (0.2-0.9); Monocytes % 8.5 %; Neutrophils # 3.5 10^3/uL (1.8-7.7); Neutrophils % 41.5 %; Nucleated Red Blood Cells % 0 %; Platelet Count 613 10^3/cmm (130-400); Red Cell Distribution Width 13.2 % (12.1-15.1); White Blood Count 8.5 10^3/uL (4.0-10.0)
[2020-01-17 22:36] VITALS: BP 98/63; PULSE 76; RESP 17; O2SAT 97
[2020-01-17 22:41] LABS: Alkaline Phosphatase 276 IU/L (40-130); Anion Gap 17.4 (5-19); Aspartate Amino Transferase 26 U/L (0-40); Blood Urea Nitrogen 55 mg/dL (8-23); Calcium 9.7 mg/dL (8.5-10.5); Carbon Dioxide 18 mmol/L (22-29); Chloride 97 mmol/L (98-107); Globulin 3.5 g/dL (1.3-4.6); Glomerular Filtration Rate 35.5 mL/min (90-130); Glucose 167 mg/dL (65-115); Osmolality Calculated 266 mOsm/kg (285-295); Potassium 5.4 mmol/L (3.5-5.1); Sodium 127 mmol/L (136-145); Total Bilirubin 0.5 mg/dL (0.15-1.2); Total Protein 7.5 g/dL (6.6-8.7)
[2020-01-17 23:02] LABS: Alanine Aminotransferase 33 U/L (0-41)
[2020-01-18 00:29] VITALS: BP 109/65; PULSE 76; RESP 20; O2SAT 100
== END 2020-01-18 00:36 | disposition home or self-care (01) ==
PROVIDERS: Emergency Provider Emergency Medicine; Family Provider Family Medicine; PCP Family Medicine
DX: E86.0 Dehydration (principal); N17.9 Acute kidney failure, unspecified; K50.90 Crohn's disease, unspecified, without complications; K21.9 Gastro-esophageal reflux disease without esophagitis; I10 Essential (primary) hypertension; E78.5 Hyperlipidemia, unspecified; Z87.891 Personal history of nicotine dependence
CPT/HCPCS: 12345; 36415; 80053; 85025; 93005; 99283; J7030

== ENCOUNTER 2020-03-25 12:26 | Inpatient (IN) | payer OTHER, MEDICARE, SELFPAY ==
--- NOTE | 2020-03-21 10:15 | ANES.PREANE2 ---
Pre-Anesthetic Assessment Pre-Anesthetic Assessment: Height/Weight: Height 1.78 m Preop Diagnosis: Perforated small bowel with history of Crohn's disease Proposed Procedure: Operation Date: 03/25/20 08:00 Proposed Procedures p Laparoscopic poss open ileostomy take down 18180 K50.80(Not Applicable) - Eren Valverde MD Familial anesthetic complications: None Social: Social History: No alcohol Comment: former smoker (1981) Exam: Pre-Anes Outpt Exam: alert, oriented x 3, clear to auscultation bilaterally and regular rate & rhythm Airway: Cervical ROM: WNL MP: 1 Dentition: False Pulmonary: Pulmonary: None reported CV/HEM: CV/HEM: HTN : : None reported Hepatic: Hepatic: None reported GI: GI: GERD Comments: hx esophageal dilation (states he needs another one soon-= has to chew small pieces) crohn's disease s/p small bowel resection Metabolic: Metabolic: Hyperlipidemia Comments: B12 deficiency Musc/skel: Musc/skel: None reported Neuropsych: Neuropsych: Neuropathy Anesthetic Plan: ASA status: 3 Anesthesia: General Risk of > 500 ml blood loss (7ml/kg in children): No PFSH Anesthesia PFSH: Medical History Crohn's disease Drug-induced peripheral neuropathy GERD (gastroesophageal reflux disease) HTN (hypertension), benign Hyperlipidemia Surgical History History of esophageal dilatation S/P ileostomy (~12/2019) S/P small bowel resection (~12/2019) Status post colonoscopy Family History Mother SLE (systemic lupus erythematosus) Father CAD (coronary artery disease) Denies family history of Anesthesia complication Bleeding disorder Social History Smoking and tobacco status: former smoker Quit status (tobacco): has quit using tobacco Year quit tobacco: 1979 Alcohol intake: never Lives independently: Yes Household members: spouse History of recent travel: No Data Anesthesia Cardiac Studies: No Data to Display
[2020-03-21 10:56] VITALS: BMI 23.6
--- NOTE | 2020-03-21 11:02 | ECG_ITS ---
[facility] Test Date: 2020-03-21 Pat Name: Enoch Collier Department: Room: Gender: Male Eligibility Counselor: : 1950 Requested By: Lilly Connell Order Number: [id number] Molly MD: Yumiko Walker M.D. Measurements Intervals [place] Rate: 93 P: AL: -1 QRS: 33 QRSD: 93 T: 62 QT: 337 QTc: 419 Interpretive Statements SINUS RHYTHM WITH VENTRICULAR PREMATURE COMPLEXES Compared to ECG 01/17/2020 22:02:01 Ventricular premature complex(es) now present Early repolarization no longer present Electronically Signed On 03-21-2020 16:28:39 CDT by Yumiko Walker M.D. [id number]
[2020-03-21 11:26] LABS: Basophils # 0.1 10^3/uL (0.0-0.1); Basophils % 0.7 %; Eosinophils # 0.2 10^3/uL (0.0-0.8); Eosinophils % 2.7 %; Hematocrit 44.1 % (42.0-52.0); Hemoglobin 15.3 g/dL (11.7-16.6); Lymphocytes # 3.2 10^3/uL (0.8-4.8); Lymphocytes % 36.3 %; Mean Corpuscular HGB Conc 34.7 g/dL (30.0-36.0); Mean Corpuscular Hemoglobin 30.5 pg (28.0-34.0); Mean Platelet Volume 9.1 fL (7.4-10.4); Monocytes # 0.5 10^3/uL (0.2-0.9); Monocytes % 6.2 %; Neutrophils # 4.6 10^3/uL (1.8-7.7); Neutrophils % 52.9 %; Nucleated Red Blood Cells % 0 %; Platelet Count 318 10^3/cmm (130-400); Red Blood Count 5.01 10^6/uL (4.1-5.3); Red Cell Distribution Width 14.9 % (12.1-15.1); White Blood Count 8.7 10^3/uL (4.0-10.0)
[2020-03-21 11:51] LABS: Anion Gap 16.8 (5-19); Blood Urea Nitrogen 17 mg/dL (8-23); Calcium 9.9 mg/dL (8.5-10.5); Carbon Dioxide 22 mmol/L (22-29); Chloride 99 mmol/L (98-107); Creatinine Clr Calc Pharmacy 83.0681; Glomerular Filtration Rate 84.2 mL/min (90-130); Glucose 108 mg/dL (65-115); Osmolality Calculated 273 mOsm/kg (285-295); Potassium 4.8 mmol/L (3.5-5.1); Sodium 133 mmol/L (136-145)
[2020-03-25] VITALS (16 sets, daily range): BP systolic 115–130; BP diastolic 75–90; PULSE 93–114; RESP 16–20; TEMP 36.3–36.8; O2SAT 94–100
[2020-03-25] MEDS: sodium chloride 0.9% 1,000 ML 30 ML IV (07:04)
--- NOTE | 2020-03-25 07:32 | W.PM.OPSUD ---
Surgery/Procedure H&P Update DATE OF PROCEDURE: March 25, 2020 DATE H&P PERFORMED: 03/12/20 H&P UPDATE INFORMATION: I have reviewed H&P completed within last 30 days, I have examined patient prior to procedure and No changes to prior documentation PREOP DIAGNOSIS: Ileostomy takedown PLANNED PROCEDURE: Operation Date: 03/25/20 08:00 Proposed Procedures p Laparoscopic ileostomy Takedown(Not Applicable) - Eren Valverde MD
--- NOTE | 2020-03-25 08:15 | P.OP_ITS ---
Operative Report Date of procedure: March 25, 2020 Pre-op Diagnosis: Status post exploratory laparotomy for perforated small bowel secondary to Crohn's disease Post-op Diagnosis: Small bowel loops adherent to the abdominal wall No evidence of Crohn's disease extraluminally Procedure Done: Laparoscopic lysis of adhesions 15 minutes Laparoscopic ileostomy takedown with partial colectomy with [id number] ileocolic anastomosis Pathology: Cecum and ileum Surgeon: Eren Valverde Estimated blood loss (mL): 50 IV fluids (mL): 1,700 Urine output (mL): 200 Condition: stable Disposition: PACU Procedure: The patient was taken to the operating room and intubated under general anesthesia after IV antibiotic had been administered. A Bowles catheter was placed and the abdomen was prepped and draped in a sterile manner. Prior to prepping the abdominal wall the ileostomy was closed with 2-0 silk suture. Using 15 blade an elliptical incision was made around the ileostomy, subcuta neous tissue was divided using electrocautery and ileostomy adherent to the external oblique aponeurosis and rectus muscle was taken down carefully using Metzenbaum scissors until the ileostomy had been completely freed up and introduced into the peritoneal cavity. The ileostomy site was closed with towel clamps. A 2 cm incision was made in the left upper quadrant and using open Whittaker technique the peritoneal cavity was entered. A 10 mm port was placed and 15 mm of pneumoperitoneum was created. 2 separate 5 mm ports were placed in the midclavicular line on the left side at the level of the umbilicus and the left lower quadrant under direct visualization. Using LigaSure lysis of adhesions was performed for about 15 minutes until small bowel loops adherent to the abdominal wall as well as interloop adhesions as well as small bowel loop adherent to the transverse colon was taken down. The line of Toldt was opened adjacent to the ascending colon and the ascending colon as well as the cecum was mobilized medially in the avascular plane retroperitoneally. The hepatic flexure was taken down after an opening was made in the greater omentum near the falciform ligament. This resulted in adequate mobilization of the right colon. The rectus muscle was divided laterally since the colon could not be exteriorized due to large amount of solid stool in the cecum. A wound protector was placed and the ileum and the mobilized ascending colon and cecum was exteriorized. The mesentery of the cecum was divided using LigaSure. The right colon had a large amount of solid stool which was milked proximally into the cecum. Interrupted 4-0 Vicryl sutures were placed to approximate the ileum to the ascending colon. Enterotomies were made on the ascending colon and the ileum and 75 millimeter blue load NOEMI stapler was fired to create a [id number] enterocolostomy. The previously created enterotomies were identified and grasped with Allis clamps and 2 loads of 75 mm blue load NOEMI stapler was fired distal to the enterotomies resulting in resection of the cecum as well as the portion of the ileum adherent to the abdominal wall with closure of the enterocolostomy. 20 cc of 0.5% Marcaine mixed with 20 cc of Exparel mixed with 20cc of saline was injected under laparoscopic visualization in the midclavicular line bilaterally for TAP block. The peritoneal cavity was irrigated with 1 L of warm saline and wound protector was removed and anastomosis covered with greater omentum. The peritoneum in the left upper quadrant incision was closed with 3-0 Vicryl suture, the external oblique aponeurosis was approximated using running 0 Vicryl suture and subcutaneous tissue approximated using 3-0 Vicryl suture. In the right lower quadrant at the ileostomy site the peritoneum was approximated using running 0 Vicryl suture. The external oblique aponeurosis was closed using running #1 loop PDS and subcutaneous tissues approximated using interrupted 3-0 Vicryl suture. Skin was closed with morris and packed with quarter inch ribbon gauze between the morris. Sterile dressings were applied. Patient was stable throughout the procedure and transferred to recovery room with Obwles catheter in place.
[2020-03-25] MEDS: metroNIDAZOLE IV 500 MG/100 ML PREMIX 100 MG IV ×2 (09:15→17:53)
--- NOTE | 2020-03-25 09:33 | SUR.OPER ---
0958 - Pt's Corinne notified of surgery start via her cell phone.
--- NOTE | 2020-03-25 10:54 | SUR.OPER ---
1054 - Corinne updated on surgery progress and pt status vai her cell phone.
--- NOTE | 2020-03-25 12:25 | SUR.PHASEI ---
1223- ORAL AIRWAY OUT, SIMPLE MASK IN PLACE AT 6LPM, SAT 100%
[2020-03-25] MEDS: fentaNYL 50 mcg/mL INJ 2mL IVP (12:30)
--- NOTE | 2020-03-25 13:15 | PC.NURSE ---
Patient arrived from PACU at this time. Patient is A&Ox3. Repsirations even and non-labored on nasal cannula 2 liter stating 95%.
[2020-03-25] MEDS: ondansetron 2 mg/ML SDV 2 mL 4 MG IVP (13:54)
[2020-03-25] MEDS: D5-NS 0.45% + KCL 20 mEq 20 MEQ/1,000 ML BAG 100 MEQ IV (14:10)
[2020-03-25] MEDS: HYDROcodone-acetaminophen 5-325 mg Tablet 1 TAB PO ×2 (14:26→21:36)
[2020-03-25] MEDS: morphine 4 mg/mL SDV 1 mL 3 MG IVP ×2 (16:35→19:14)
[2020-03-25] MEDS: lisinopril 20 mg Tablet 10 MG PO (17:56)
[2020-03-25] MEDS: sennosides 8.6 mg Tablet 17.2 MG PO (21:36)
[2020-03-26] VITALS (7 sets, daily range): BP systolic 110–126; BP diastolic 74–84; PULSE 82–811; RESP 18–22; TEMP 36.1–37; O2SAT 96–98
[2020-03-26] MEDS: metroNIDAZOLE IV 500 MG/100 ML PREMIX 100 MG IV ×3 (01:21→21:41)
[2020-03-26 02:35] LABS: Basophils % 0.2 %; Hematocrit 40.3 % (42.0-52.0); Hemoglobin 13.5 g/dL (11.7-16.6); Lymphocytes # 1.2 10^3/uL (0.8-4.8); Lymphocytes % 10.2 %; Mean Corpuscular HGB Conc 33.5 g/dL (30.0-36.0); Mean Corpuscular Volume 89.6 fL (80-94); Mean Platelet Volume 9.2 fL (7.4-10.4); Monocytes # 0.8 10^3/uL (0.2-0.9); Monocytes % 6.6 %; Neutrophils # 9.8 10^3/uL (1.8-7.7); Neutrophils % 82.6 %; Nucleated Red Blood Cells % 0 %; Platelet Count 254 10^3/cmm (130-400); Red Cell Distribution Width 15.3 % (12.1-15.1); White Blood Count 11.8 10^3/uL (4.0-10.0)
[2020-03-26 02:49] LABS: Anion Gap 16.8 (5-19); Blood Urea Nitrogen 13 mg/dL (8-23); Calcium 8.7 mg/dL (8.5-10.5); Carbon Dioxide 20 mmol/L (22-29); Chloride 101 mmol/L (98-107); Creatinine Clr Calc Pharmacy 74.7613; Glomerular Filtration Rate 74.5 mL/min (90-130); Glucose 142 mg/dL (65-115); Osmolality Calculated 275 mOsm/kg (285-295); Potassium 4.8 mmol/L (3.5-5.1); Sodium 133 mmol/L (136-145)
[2020-03-26] MEDS: D5-NS 0.45% + KCL 20 mEq 20 MEQ/1,000 ML BAG 100 MEQ IV (04:05)
--- NOTE | 2020-03-26 07:10 | P.PN_ITS ---
Subjective Subjective: Interval history: Patient mainly complaining of pain, has been afebrile, no nausea or vomiting, no flatus or BM Vitals/I&O/Wt Last Vital Signs Temp 97.8 F 03/26/20 04:00 Pulse 89 03/26/20 04:00 Resp 20 H 03/26/20 04:00 BP 123/84 03/26/20 04:00 Pulse Ox 98 03/26/20 04:00 03/25/20 03/26/20 03/26/20 22:59 06:59 14:59 Intake Total 150 / 2050 115 / 0 Output Total 300 / 2750 1999 / 2749 Balance -150 / -700 -850 / -700 Physical Exam Narrative: EXAM NARRATIVE: Abdomen: Soft, slightly distended, tender, in cisions clean dry and intact Urinary Catheter Management^: Bowles: Cath Placed During This Visit: yes Reason for Continuing Indwelling Catheter: Required Immobilization for Trauma or Surgery or Anesthesia Urinary Catheter Date of Insertion: 03/25/20 Urinary Catheter Time of Insertion: 09:15 Data : 03/26/20 02:12 03/26/20 02:12 A&P Assessment and plan (1) S/P partial colectomy: Status post ileostomy takedown postop day 1 postop ileus Decrease IV fluids to 30 cc/h Start clear liquid diet DC Bowles Resume home medications Morphine and [place] for pain control Senna for bowel regimen Ambulate with PT Status: Acute Attestations Medical Necessity Statement*: Status post ileostomy takedown requiring continued inpatient stay to ensure resolution of ileus Coding Level of Care Code Acute Director Of Field Coordination for [facility] Fwd Diagnoses S/P partial colectomy Z90.49
--- NOTE | 2020-03-26 07:30 | PC.NURSE ---
Patient's Bowles Catheter removed at this time. Dressing to right lower abdomen has small amount of drainage changed dressing at this time. Stab wound dressing clean dry and intact. Patient is A&Ox3. Respirations even and non-labored on room air.
[2020-03-26] MEDS: pantoprazole 40 mg SDV IVP (08:23)
[2020-03-26] MEDS: enoxaparin 40 mg/0.4 mL Syringe SUBCUT (08:23)
[2020-03-26] MEDS: lisinopril 20 mg Tablet 10 MG PO ×2 (08:23→17:21)
[2020-03-26] MEDS: HYDROcodone-acetaminophen 5-325 mg Tablet 1 TAB PO ×2 (08:28→14:17)
--- NOTE | 2020-03-26 21:35 | PC.NURSE ---
NOTE Care of pt assumed at this time
[2020-03-26] MEDS: sennosides 8.6 mg Tablet 17.2 MG PO (21:40)
[2020-03-26] MEDS: morphine 4 mg/mL SDV 1 mL 3 MG IVP (21:51)
[2020-03-26] MEDS: ondansetron 2 mg/ML SDV 2 mL 4 MG IVP (21:51)
[2020-03-27] VITALS (7 sets, daily range): BP systolic 104–145; BP diastolic 68–87; PULSE 86–103; RESP 18–20; TEMP 36.4–37.2; O2SAT 95–98
[2020-03-27] MEDS: HYDROcodone-acetaminophen 5-325 mg Tablet 1 TAB PO ×3 (02:40→18:27)
[2020-03-27 03:13] LABS: Basophils % 0.2 %; Eosinophils # 0.1 10^3/uL (0.0-0.8); Eosinophils % 0.5 %; Hematocrit 38.3 % (42.0-52.0); Hemoglobin 12.7 g/dL (11.7-16.6); Lymphocytes # 1.4 10^3/uL (0.8-4.8); Lymphocytes % 14.6 %; Mean Corpuscular HGB Conc 33.2 g/dL (30.0-36.0); Mean Corpuscular Hemoglobin 30.3 pg (28.0-34.0); Mean Corpuscular Volume 91.4 fL (80-94); Mean Platelet Volume 9.7 fL (7.4-10.4); Monocytes # 0.7 10^3/uL (0.2-0.9); Neutrophils # 7.2 10^3/uL (1.8-7.7); Neutrophils % 77.3 %; Nucleated Red Blood Cells % 0 %; Platelet Count 252 10^3/cmm (130-400); Red Blood Count 4.19 10^6/uL (4.1-5.3); Red Cell Distribution Width 15.8 % (12.1-15.1); White Blood Count 9.3 10^3/uL (4.0-10.0)
[2020-03-27 03:59] LABS: Anion Gap 16.5 (5-19); Blood Urea Nitrogen 16 mg/dL (8-23); Calcium 8.6 mg/dL (8.5-10.5); Carbon Dioxide 21 mmol/L (22-29); Chloride 99 mmol/L (98-107); Creatinine Clr Calc Pharmacy 83.0681; Glomerular Filtration Rate 84.2 mL/min (90-130); Glucose 131 mg/dL (65-115); Osmolality Calculated 272 mOsm/kg (285-295); Potassium 4.5 mmol/L (3.5-5.1); Sodium 132 mmol/L (136-145)
[2020-03-27] MEDS: D5-NS 0.45% + KCL 20 mEq 20 MEQ/1,000 ML BAG 30 MEQ IV (05:24)
[2020-03-27] MEDS: metroNIDAZOLE IV 500 MG/100 ML PREMIX 100 MG IV ×3 (05:24→21:35)
--- NOTE | 2020-03-27 05:50 | PC.NURSE ---
SHIFT SUMMARY Had a good night. Is pleasant. Received some IV Morphine in evening for abd pain then later in night only required po Hydrocodone for pain. Abd is softly distended and says feel bloated. Still not passing any gas but says is belching some. ABD dressing to right abdomen and 2x2's to X3 stab surgical wounds left abdomen all dry & intact. IV infusing at 30ml/hr rate and receiving IV antibiotics as ordered. Voiding well with ambulations to bathroom
[2020-03-27] MEDS: sennosides 8.6 mg Tablet 17.2 MG PO ×2 (08:03→16:58)
[2020-03-27] MEDS: bisacodyl 10 mg Supp PR (08:03)
[2020-03-27] MEDS: enoxaparin 40 mg/0.4 mL Syringe SUBCUT (08:03)
[2020-03-27] MEDS: lisinopril 20 mg Tablet 10 MG PO ×2 (08:04→16:57)
[2020-03-27] MEDS: pantoprazole 40 mg SDV IVP (08:06)
--- NOTE | 2020-03-27 10:22 | PM.PN ---
Subjective Subjective: Interval history: No issues overnight, patient feels a bit bloated, no flatus or BM. No nausea or vomiting Vitals/I&O/Wt Last Vital Signs Temp 97.8 F 03/27/20 07:12 Pulse 86 03/27/20 07:12 Resp 20 H 03/27/20 07:12 BP 114/70 03/27/20 07:12 Pulse Ox 97 03/27/20 07:12 03/26/20 03/27/20 03/27/20 22:59 06:59 14:59 Intake Total 600 / 3043.5 1013.5 / 3043.5 480 / 480 Output Total 700 / 700 Balance -100 / 2343.5 1013.5 / 2343.5 480 / 480 Physical Exam Narrative: EXAM NARRATIVE: AB to min: Soft, distended, minimally tender, incisions healing well, right lower quadrant incision is packed Urinary Catheter Management^: Bowles: Cath Placed During This Visit: yes, but has since been removed by the nurse Reason for Continuing Indwelling Catheter: Decision to DC Catheter Urinary Catheter Date of Insertion: 03/25/20 Urinary Catheter Time of Insertion: 09:15 Date Urinary Catheter Removed: 03/26/20 Time Urinary Catheter Discontinued: 07:30 Data : 03/27/20 02:35 03/27/20 02:35 A&P Assessment and plan (1) S/P partial colectomy: Status post ileostomy takedown postop day 2 postop ileus IV fluids to 30 cc/h Start clear liquid diet Dulcolax suppository and fleets enema today Resume home medications Morphine and [place] for pain control Senna twice daily for bowel regimen Ambulate with PT Awaiting return of bowel function Status: Acute Attestations Medical Necessity Statement*: Postop ileus status post ileostomy takedown Coding Level of Care Code Acute 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
[2020-03-27] MEDS: Fleet Enema 133 mL Enema PR (13:41)
[2020-03-28] MEDS: HYDROcodone-acetaminophen 5-325 mg Tablet 1 TAB PO ×4 (00:29→17:43)
[2020-03-28 03:00] LABS: Basophils % 0.3 %; Eosinophils # 0.1 10^3/uL (0.0-0.8); Eosinophils % 1.5 %; Hematocrit 36.1 % (42.0-52.0); Hemoglobin 12.1 g/dL (11.7-16.6); Lymphocytes # 1.6 10^3/uL (0.8-4.8); Lymphocytes % 16.6 %; Mean Corpuscular HGB Conc 33.5 g/dL (30.0-36.0); Mean Corpuscular Hemoglobin 30.4 pg (28.0-34.0); Mean Corpuscular Volume 90.7 fL (80-94); Mean Platelet Volume 9.3 fL (7.4-10.4); Monocytes # 0.7 10^3/uL (0.2-0.9); Monocytes % 7.1 %; Neutrophils # 7.1 10^3/uL (1.8-7.7); Neutrophils % 74.1 %; Nucleated Red Blood Cells % 0 %; Platelet Count 237 10^3/cmm (130-400); Red Blood Count 3.98 10^6/uL (4.1-5.3); Red Cell Distribution Width 15.2 % (12.1-15.1); White Blood Count 9.6 10^3/uL (4.0-10.0)
[2020-03-28 03:15] LABS: Anion Gap 15.1 (5-19); Blood Urea Nitrogen 16 mg/dL (8-23); Calcium 8.6 mg/dL (8.5-10.5); Carbon Dioxide 23 mmol/L (22-29); Chloride 98 mmol/L (98-107); Creatinine Clr Calc Pharmacy 83.0681; Glomerular Filtration Rate 84.2 mL/min (90-130); Glucose 122 mg/dL (65-115); Osmolality Calculated 272 mOsm/kg (285-295); Potassium 4.1 mmol/L (3.5-5.1); Sodium 132 mmol/L (136-145)
[2020-03-28 03:41] VITALS: BP 121/79; PULSE 75; RESP 20; TEMP 36.9; O2SAT 95
[2020-03-28] MEDS: D5-NS 0.45% + KCL 20 mEq 20 MEQ/1,000 ML BAG 30 MEQ IV (05:27)
[2020-03-28] MEDS: metroNIDAZOLE IV 500 MG/100 ML PREMIX 100 MG IV ×3 (05:27→22:19)
[2020-03-28 08:00] VITALS: BP 119/78; PULSE 100; RESP 16; TEMP 36.6; O2SAT 94
[2020-03-28] MEDS: enoxaparin 40 mg/0.4 mL Syringe SUBCUT (08:32)
[2020-03-28] MEDS: pantoprazole 40 mg SDV IVP (08:32)
[2020-03-28] MEDS: sennosides 8.6 mg Tablet 17.2 MG PO (08:33)
[2020-03-28] MEDS: lisinopril 20 mg Tablet 10 MG PO ×2 (08:33→17:42)
--- NOTE | 2020-03-28 09:33 | XRR_ITS ---
PROCEDURE INFORMATION: Exam: XR Abdomen, 2 Views Exam date and time: 03/28/2020 10:15 AM Age: 69 years old Clinical indication: Abdominal pain; Prior surgery; Surgery date: 3-7 days post-operative; Surgery type: Colostomy bag removed; Additional info: Post op, HX of crohns disease TECHNIQUE: Imaging protocol: XR of the abdomen. Views: 2 Views. COMPARISON: CT abdomen pelvis con [id number] 01/02/2020 11:26 AM FINDINGS: Gastrointestinal tract: Numerous loops of air and fluid-filled dilated small bowel consistent with an obstruction. Postoperative ileus not excluded. Intraperitoneal space: Surgical clips in the left mid/upper abdomen. Possible small amount of free air below the right hemidiaphragm. Correlate with chest radiograph versus CT. Bones/joints: Unremarkable for age. XR/XR abdomen min 2V 98501 IMPRESSION: 1. Numerous loops of air and fluid-filled dilated small bowel consistent with an obstruction. Postoperative ileus not excluded. 2. Surgical clips in the left mid/upper abdomen. 3. Possible small amount of free air below the right hemidiaphragm. Correlate with chest radiograph versus CT. Given the history of recent surgery, likely related.
--- NOTE | 2020-03-28 10:12 | PC.SOCIAL ---
IMM Update Pg 2 of IMM given and explained to patient, who verbalized understanding. Initialed, dated, and timed and placed in chart. Copy provided to patient.
--- NOTE | 2020-03-28 10:31 | PM.PN ---
Subjective Subjective: Interval history: Patient feels better today, less bloated, had one medium-sized and 2 small bowel movements, passing flatus no nausea or vomiting Vitals/I&O/Wt Last Vital Signs Temp 97.9 F 03/28/20 08:00 Pulse 100 03/28/20 08:00 Resp 16 03/28/20 08:00 BP 119/78 03/28/20 08:00 Pulse Ox 94 03/28/20 08:00 03/27/20 03/28/20 03/28/20 22:59 06:59 14:59 Intake Total 1000.5 / 2521.5 871 / 2521.5 Output Total 250 / 1075 525 / 1075 Balance 750.5 / 1446.5 346 / 1446.5 Physical Exam Narrative: EXAM NARRATIVE: Abdomen: Soft, less distended, newly tender, incision being packed Urinary Catheter Management^: Bowles: Cath Placed During This Visit: yes, but has since been removed by the nurse Reason for Continuing Indwelling Catheter: Decision to DC Catheter Urinary Catheter Date of Insertion: 03/25/20 Urinary Catheter Time of Insertion: 09:15 Date Urinary Catheter Removed: 03/26/20 Time Urinary Catheter Discontinued: 07:30 Data : 03/28/20 02:50 03/28/20 02:50 A&P Assessment and plan (1) S/P partial colectomy: Status post ileostomy takedown postop day 3 postop ileus DC IV fluids Full liquid diet Senna S twice daily and fleets enema today Resume home medications Morphine and [place] for pain control Ambulate with PT Awaiting return of bowel function Status: Acute Attestations Medical Necessity Statement*: Abdominal pain Coding Level of Care Code Acute Public Relations Manager for [facility] Fwd Diagnoses S/P partial colectomy Z90.49
--- NOTE | 2020-03-28 10:32 | PC.CHAP ---
Pastoral Care Encounter/Spiritual Assessment Type of Contact [] Declined hairspring truer visit [] Patient/Family/Request visit [] Outpatient visit [] Follow-up visit [] Physician referral [] Code/Alert [x] Routine visit [] Staff referral [] Actively dying [] Patient sleeping [] Family support [] [] Out of room [] Palliative care [] [] Receiving care in room [] Pre-surgical visit [] Trauma [] Long length of stay [] ICU visit [] Other: Relational/Emotional Strength [x] Patient feels connected with others/family/visitors/staff [] Distress [] Loneliness/isolation [] Abandonment Spirituality of Patient [x] Person of [place] [x] Attends Judaism of their [place] [x] Believes in Prayer [] Reads Bible or Mu-Ism materials [] There are Spiritual issues to be addressed Video Games Storywriter Interventions [x] Prayer [x] Active listening [x] Non-anxious presence [x] Spiritual/emotional support [] Crisis/trauma care [] Spiritual counseling [] Bereavement support [] Provided bereavement packet [] Provided Bible/devotional materials [] Provided toy/stuffed animal, coloring book to patient or family member [] Provided Communion [] Anointing/[place] [] Salvation [x] Completed spiritual assessment [] Other: Impact on Illness or Injury [] Angry [] Fearful [] Anxious [] Often cries [] Exhaustion [] Unable to work [] Unable to attend jew [] Unable to walk/stand [] Unable to read [] Unable to drive [] Unable to eat/drink [] Unable to sleep [] Unable to be with family [] Patient intubated [x] Other: Summary Patient is a practicing Spiritism. Time spent with patient 5 minutes
[2020-03-28] MEDS: Fleet Enema 133 mL Enema PR (11:58)
[2020-03-28 12:00] VITALS: BP 109/47; PULSE 95; RESP 20; TEMP 36.9; O2SAT 94
[2020-03-28 15:38] VITALS: BP 129/85; PULSE 90; RESP 16; TEMP 36.9; O2SAT 99
[2020-03-28] MEDS: sennosides-docusate Tablet 1 TAB PO (17:43)
[2020-03-28 19:27] VITALS: BP 122/87; PULSE 95; RESP 20; TEMP 36.8; O2SAT 96
[2020-03-28] MEDS: acetaminophen 325 mg Tablet 650 MG PO (22:20)
[2020-03-28 23:24] VITALS: BP 125/86; PULSE 93; RESP 20; TEMP 36.8; O2SAT 95
[2020-03-29] MEDS: HYDROcodone-acetaminophen 5-325 mg Tablet 1 TAB PO ×2 (02:55→09:17)
[2020-03-29 04:00] VITALS: BP 126/85; PULSE 86; RESP 18; TEMP 36.5; O2SAT 95
[2020-03-29] MEDS: metroNIDAZOLE IV 500 MG/100 ML PREMIX 100 MG IV ×2 (06:22→14:52)
--- NOTE | 2020-03-29 06:59 | PC.NURSE ---
Shift Summary Pt had some c/o pain throughout the night, oral pain meds would bring the pain level to a 5. pt stated pain was tolerable there. pt has gotten up and amb to bathroom on own. pt has had good urine output and four medium sized watery bms. pt has taken oral meds crushed with no problems.
[2020-03-29 07:30] VITALS: BP 128/86; PULSE 85; RESP 16; TEMP 36.4; O2SAT 95
[2020-03-29] MEDS: pantoprazole 40 mg SDV IVP (09:14)
[2020-03-29] MEDS: sennosides-docusate Tablet 1 TAB PO (09:14)
[2020-03-29] MEDS: enoxaparin 40 mg/0.4 mL Syringe SUBCUT (09:14)
[2020-03-29] MEDS: docusate sodium 100 mg Capsule PO (09:14)
[2020-03-29] MEDS: lisinopril 20 mg Tablet 10 MG PO (09:17)
[2020-03-29 11:17] VITALS: BP 136/92; PULSE 89; RESP 17; TEMP 36.7; O2SAT 97
[2020-03-29 14:52] VITALS: RESP 17
[2020-03-29] MEDS: morphine 4 mg/mL SDV 1 mL 3 MG IVP (14:52)
--- NOTE | 2020-03-29 15:18 | P.DS_ITS ---
Discharge Providers Date of Admission: 03/25/20 12:26 Date of Discharge: March 29, 2020 Attending Provider at Admission: Eren Valverde MD Attending Provider at Discharge: Eren Valverde MD Primary Care Provider: Felecia Cardoso DO Diagnoses at Discharge Discharge Diagnosis (1) S/P partial colectomy: Status: Acute Reason for Visit Reason for Visit: crohns disease Hospital Course Hospital Course: This is a 69-year-old gentleman who had undergone small bowel resection with ileostomy 3 months ago. Patient underwent elective partial colectomy with ileostomy takedown. By postop day 3 he had return of bowel function and today he was tolerating a GI soft diet ambulating and pain controlled with oral pain medications. His vital signs are stable and his incisions are clean dry and intact Physical Exam Urinary Catheter Management^: Bowles: Cath Placed During This Visit: yes, but has since been removed by the nurse Reason for Continuing Indwelling Catheter: Decision to DC Catheter Urinary Catheter Date of Insertion: 03/25/20 Urinary Catheter Time of Insertion: 09:15 Date Urinary Catheter Removed: 03/26/20 Time Urinary Catheter Discontinued: 07:30 Discharge Data Data Completed and Pending: Completed Studies During Hospitalization Category Date Time Status XR abdomen min 2V [id number] Routine Exams 03/28/20 09:33 Completed Pathology: Surgic al [PTH] Routine Pth 03/25/20 12:09 Completed Vitals: Last Vital Signs Temp 98.0 F 03/29/20 11:17 Pulse 89 03/29/20 11:17 Resp 17 03/29/20 14:52 BP 136/92 03/29/20 11:17 Pulse Ox 97 03/29/20 11:17 Discharge Plan Discharge Patient Disposition: Home, Self-Care Condition: Stable Prescriptions: New Flagyl 500 mg tablet 500 mg PO Q8H 3 Days Qty: 9 RF: 0 Colace 100 mg capsule 100 mg PO BID Qty: 30 RF: 0 ciprofloxacin HCl 500 mg tablet 500 mg PO BID 3 Days Qty: 6 RF: 0 [place] 5-325 mg tablet 1 tab PO Q6H 7 Days Qty: 20 RF: 0 Continued pantoprazole 40 mg tablet,delayed release (DR/EC) 40 mg PO QAM Qty: 90 RF: 3 cyclobenzaprine 10 mg Tablet 10 mg PO TID PRN (Reason: Pain) RF: 0 lisinopril 20 mg Tablet 10 mg PO BID RF: 0 cyanocobalamin (vitamin B-12) 500 mcg Tablet 500 mcg PO DAILY RF: 0 Held Cholestyramine Light 4 gram Powder 4 g PO BID RF: 0 Hold Instructions: Resume on 01/05/20. Discharge Orders: Discharge Order (Routine); Ordered 03/29/20 Ordered By: Eren Valverde Referrals: [facility] Home Care ([facility]) [Outside] (Called [facility] and told them you are being discharged today. They will contact you.) Eren Valverde MD [Physician] - 7-10 days (Faxed a face sheet and information to the clinic and they will call you with an appoinntment.) Discharge Diet: Advance as tolerated Patient Instructions: Ciprofloxacin (By mouth), Hydrocodone/Acetaminophen (By mouth), Metronidazole (By mouth), Laxative, Stool Softeners (By mouth), Colectomy (DC) Activity Restrictions/Additional Instructions: ok to shower, do not take a bath do not lift more than 10 pounds ok to start driving once you stop taking oral opoid pain meds Ambulate ad alexander You can leave the incisions open, keep it clean and dry Discharge Date/Time: 03/29/20 16:55 Discharge Attestations Time Spent in Discharge Care*: less than 30 min Quality Metrics Clinical Quality Measures During this hospital stay, did patient experience: None Coding Level of Care Code Acute Milling Machine Operator Gear for [facility] Fwd Diagnoses S/P partial colectomy Z90.49
--- NOTE | 2020-03-29 15:18 | P.PN_ITS ---
Subjective Subjective: Interval history: Patient feeling a lot better, denies any nausea or vomiting, feeling a bit distended but has been having bowel movements Vitals/I&O/Wt Last Vital Signs Temp 98.0 F 03/29/20 11:17 Pulse 89 03/29/20 11:17 Resp 17 03/29/20 14:52 BP 136/92 03/29/20 11:17 Pulse Ox 97 03/29/20 11:17 03/29/20 03/29/20 03/29/20 06:59 14:59 22:59 Intake Total 550 / 2590 510 / 510 Balance 550 / 2590 510 / 510 Physical Exam Narrative: EXAM NARRATIVE: Abdomen: Soft, nontender, nondistended incisions healing well Urinary Catheter Management^: Bowles: Cath Placed During This Visit: yes, but has since been removed by the nurse Reason for Continuing Indwelling Catheter: Decision to DC Catheter Urinary Catheter Date of Insertion: 03/25/20 Urinary Catheter Time of Insertion: 09:15 Date Urinary Catheter Removed: 03/26/20 Time Urinary Catheter Discontinued: 07:30 Data : 03/28/20 02:50 03/28/20 02:50 A&P Assessment and plan (1) S/P partial colectomy: Status post ileostomy takedown postop day 4 postop ileus DC home today Status: Acute Attestations Medical Necessity Statement*: Going home today after ileostomy takedown Coding Level of Care Code Acute Organic Search Lead for [facility] Fwd Diagnoses S/P partial colectomy Z90.49
[2020-03-29 15:24] VITALS: BP 145/92; PULSE 101; RESP 17; TEMP 36.8; O2SAT 98
[2020-03-29 16:25] VITALS: BP 145/92; PULSE 101; RESP 17; TEMP 36.8; O2SAT 98
== END 2020-03-29 16:55 | disposition home or self-care (01) | DRG 330 ==
LOC: MEDSURG 12:42
PROVIDERS: Anesthesiology; Admitting Provider Surgery; PCP Family Medicine; Visit Provider Surgery
PROC: 0DBE4ZZ Excision of Large Intestine, Percutaneous Endoscopic Approach (ICD-10-PCS; CPT 44227; principal; 2020-03-25 08:00)
DX: Z43.2 Encounter for attention to ileostomy (principal); K50.90 Crohn's disease, unspecified, without complications; E11.42 Type 2 diabetes mellitus with diabetic polyneuropathy; K21.9 Gastro-esophageal reflux disease without esophagitis; I10 Essential (primary) hypertension; E78.5 Hyperlipidemia, unspecified; Z87.891 Personal history of nicotine dependence; Z90.49 Acquired absence of other specified parts of digestive tract
CPT/HCPCS: 12345; 36415; 51702; 74019; 80048; 85025; 88309; 93005; 96365; 96372; 96375; 97161; C9113; C9290; J0131; J0690; J1100; J1650; J2001; J2270; J2370; J2405; J2704; J2710; J3010; J3490; J7030; S0030

== ENCOUNTER 2020-05-16 07:04 | Outpatient (CLI) | payer OTHER, SELFPAY ==
--- NOTE | 2020-05-16 | USCV_ITS ---
Enoch Collier Age: 69 Gender: M : 1950 Exam Date: 05/16/2020 07:28 Ordering Phys: Rosanna Isaac MD Technologist: Jeannette Griffiths [place] [facility] [place]: NUMBNESS Risk Factors: Previous Vascular Surgery: RIGHT LEFT BP: 175.0 / 111.00 BP: 164.0/ 101.00 0 0 Waveform Velocity (cm/s) Velocity (cm/s) Waveform Triphasic 129.5 Iliac Prox 111.7 Triphasic Triphasic 134.9 Iliac Mid 111.7 Triphasic Triphasic Iliac Distal Triphasic 138.5 97.3 Triphasic 87.0 ANIMAL CRUELTY INVESTIGATOR 90.7 Triphasic Triphasic 88.6 SFA Prox 48.6 Biphasic Triphasic 73.0 SFA Mid 73.6 Triphasic Triphasic 65.3 SFA Dist 63.1 Triphasic Triphasic 55.9 POP 56.5 Triphasic Triphasic 68.4 ENGLISH DIVISION CHAIR 77.6 Triphasic Monophasic 22.1 DPA 18.8 Monophasic 1.0 PALMA 1.2 FINDINGS RT ENGLISH DIVISION CHAIR 180 DPA 180 LT ENGLISH DIVISION CHAIR 210 D0A 130 Normal resting ABIs bilaterally Normal Doppler waveforms in the dorsalis pedis artery with a diminished Doppler velocities CONCLUSIONS Abnormal resting ABIs bilaterally Reduced Doppler velocities and abnormal Doppler waveforms bilaterally, suggestive of hemodynamically 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 Dr Babs White MD [facility] (Electronically Signed) Final Date: 16 May 2020 15:13 S
--- NOTE | 2020-05-16 | USCV_ITS ---
Amira Enoch Age: 69 Gender: M : 1950 Exam Date: 05/16/2020 07:12 Ordering Phys: Rosanna Isaac MD Technologist: Jeannette Griffiths [place] [facility] [place] Indication: SCREENING HISTORY: Diameter (cm) AP x Transverse x Length Velocity (cm/s) Waveform Prox Aorta: 2.23 x 2.19 x 2.08 31.20 Mid Aorta: 1.92 x 2.00 x 1.97 42.30 Distal Aorta: 1.51 x 2.19 x 1.59 36.00 Right Iliac Prox: 0.97 x 0.97 x 0.78 37.40 Left Iliac Prox: 1.00 x 1.01 x 0.90 38.80 Stent Prox Landing x x Aneurysmal Sac Max x x Lt Lat Sac Dim Rt Lat Sac Dim Stent Dist Landing x x Right Iliac Stent x x Left Iliac Stent x x Right Renal Art Left Renal Art FINDINGS: Normal aortic dimensions Normal common iliac artery dimensions Normal Doppler flow velocities CONCLUSIONS Normal abdominal aortic dimensions with no evidence of aneurysm Normal proximal common iliac dimensions and Doppler velocities with no evidence of aneurysms or significant stenosis Dr Babs White MD [facility] (Electronically Signed) Final Date: 16 May 2020 15:05 S
== END 2020-05-16 07:05 | disposition home or self-care (01) ==
LOC: US 07:04
PROVIDERS: PCP Family Medicine; Visit Provider Family Medicine
DX: R20.0 Anesthesia of skin (principal); I71.4 Abdominal aortic aneurysm, without rupture
CPT/HCPCS: 76706; 93925

== ENCOUNTER → 2022-09-14 14:09 | Outpatient (BNVA) | payer MEDICARE, SELFPAY | PROVIDERS: Visit Provider Emergency Medicine | DX: R68.89 Other general symptoms and signs (principal); J20.9 Acute bronchitis, unspecified | CPT/HCPCS: 87400; 87426 ==